=== PATIENT | male | born 1940 | race Caucasian/White ===

== ENCOUNTER 2019-02-25 12:45 | Inpatient (IN) ==
[2019-02-25] MEDS ORDERED: Isovue-370 500 ML BOTTLE IVP ONE (13:06)
--- NOTE | 2019-02-25 13:08 | Emergency Department Note ---
Disposition Clinical Impression: Pneumonia Qualifiers: Pneumonia type: due to unspecified organism Laterality: bilateral Lung location: unspecified part of lung Qualified Code(s): J18.9 - Pneumonia, unspecified organism Disposition: Admitted As Inpatient Condition: Fair Time of Disposition: 17:35 SOB HPI - General Chief Complaint: ED Shortness of Breath/Dyspnea Stated Complaint: Time Seen by Provider: 02/25/19 12:51 Source: patient, EMS Mode of arrival: EMS Limitations: no limitations Nursing Notes Reviewed: Yes Vital Signs Reviewed: Yes - History of Present Illness Patient is an 78-year-old male presenting from the [facility] for concern for pneumonia. Patient has known history of COPD, congestive heart failure, DVT not currently on anticoagulant, hypertension, hyperlipidemia end-stage renal disease, renal cell carcinoma, currently on dialysis with one kidney. Patient states for the past few days he has been having increasing shortness of breath, he does not wear oxygen at home. He states that he has also been having a worsening cough with sputum production. No fevers or chills. No chest pain. No abdominal pain, nausea or vomiting. [facility] x-ray show concern for pleural effusion with right- sided opacification and pneumonia, he was seen at the [facility] initially on Monday and prescribed a Z-Ascencion, however his symptoms did not get any better. His typical dialysis regimen is Monday, he has not missed any recent dialysis regimens. - Related Data Home Medications Medication Instructions Recorded Confirmed Albuterol Sulfate [Proventil 2 puff IH QID PRN 08/05/16 02/25/19 Inhaler] Allopurinol [Zyloprim 100 MG] 100 mg PO DAILY 08/05/16 02/25/19 Furosemide [Lasix] 40 mg PO DAILY 08/05/16 02/25/19 Metoprolol [Lopressor] 50 mg PO BID 08/05/16 02/25/19 Omeprazole [PriLOSEC] 20 mg PO BID 08/05/16 02/25/19 Sevelamer [Renvela] 3,200 mg PO TIDWM 08/05/16 02/25/19 Sodium Bicarbonate 650 mg PO BID 08/05/16 02/25/19 Terazosin [Hytrin] 1 mg PO HS 08/05/16 02/25/19 Albuterol Neb [Proventil Neb] 2.5 mg IH QID PRN 02/25/19 02/25/19 Aspirin [Lo-Dose Aspirin EC] 81 mg PO DAILY 02/25/19 02/25/19 Atorvastatin [Lipitor] 20 mg PO HS 02/25/19 02/25/19 Azithromycin [Azithromycin 6-Tab 250 mg PO PER PKG DI 02/25/19 02/25/19 Pack] Folic Acid/Vit B Complex and C 1 tab PO DAILY 02/25/19 02/25/19 [Dialyvite Tablet] Isosorbide MONOnitrate [Isosorbide 30 mg PO DAILY 02/25/19 02/25/19 Mononitrate ER] Lisinopril [Zestril] 20 mg PO BID 02/25/19 02/25/19 NIFEdipine [Nifedipine ER] 60 mg PO DAILY 02/25/19 02/25/19 Polyvinyl Alcohol [Artificial 1 drop OP QID PRN 02/25/19 02/25/19 Tears] Tiotropium [Spiriva] 18 mcg IH 0700 02/25/19 02/25/19 Allergies Allergy/AdvReac Type Severity Reaction Status Date / Time naproxen Allergy Itching Verified 01/27/15 17:36 All systems ED: reviewed and negative except as stated. Review of Systems: As Per HPI Constitutional: Denies: fever, chills ENT ED: Reports: congestion Cardiovascular: Reports: dyspnea on exertion. Denies: chest pain, palpitations, syncope Respiratory: Reports: cough, dyspnea, sputum production. Denies: wheezes, hemoptysis Gastrointestinal: Denies: abdominal pain, nausea, vomiting Genitourinary: Denies: urgency, dysuria Musculoskeletal: Denies: back pain Integumentary: Denies: rash, abrasion Neurological: Denies: headache, weakness, confusion Psychiatric: Denies: anxiety Endocrine: Denies: fatigue Past Medical History - Past Medical History Medical history: Reports: COPD, dialysis, hyperlipidemia, hypertension, myocardial infarction Surgical history: Reports: cancer surgery Psychiatric history: Reports: no psych history - Social History Smoking Status: Former smoker Smokeless Tobacco Status: No Alcohol use: Reports: none Drug use: Reports: none Physical Exam - General Limitations: no limitations General appearance: alert - Head Head exam: atraumatic - Eye Eye exam: Present: normal appearance, PERRL, EOMI - ENT ENT exam: mucous membranes moist - Neck Neck exam: Present: normal inspection, full ROM, trachea midline - Chest Chest inspection: Present: normal inspection, symmetric chest wall rise - Respiratory Respiratory exam: Present: other (Crackles at the bases bilaterally, right greater than the left, no wheezing) - Cardiovascular Cardiovascular exam: Present: regular rate, normal rhythm, normal heart sounds - Abdominal Exam Abdominal exam: Present: soft, Non-Tender. Absent: tenderness, distention, guarding, rebound, rigidity - Extremities Exam Extremities exam: Present: normal inspection, full ROM. Absent: tenderness, pedal edema - Neurological Exam Neurological exam: Present: alert, oriented X3 - Psychiatric Psychiatric exam: Present: normal affect, normal mood Course Vital Signs Temperature 98.1 F 02/25/19 12:49 Pulse Rate 81 02/25/19 12:49 Respiratory Rate 22 02/25/19 12:49 Blood Pressure 170/68 02/25/19 12:49 O2 Sat by Pulse Oximetry 97 02/25/19 12:49 Temperature 98.3 F 02/25/19 19:38 Pulse Rate 81 02/25/19 19:38 Respiratory Rate 17 02/25/19 19:38 Blood Pressure 191/86 02/25/19 19:38 O2 Sat by Pulse Oximetry 97 02/25/19 19:38 Oxygen Delivery Oxygen Delivery Room Air Shortness of Breath/Dyspnea - [facility] Narrative Medical decision making narrative: Patient is an 78-year-old male with history of hypertension, hyperlipidemia, DVT not on anticoagulation, is currently taking aspirin, end-stage renal disease, history of renal cell carcinoma with right kidney removal early on dialysis. Patient was sent in via the [facility] for concern for pneumonia. [facility] and was prescribed a Z-Ascencion for pneumonia, patient symptoms have worsened. Patient arrives afebrile and in no acute distress. He is requiring oxygen at this point in time he is currently on 2 L nasal cannula which he does not wear typically at home. X-ray was performed prior to arrival here at the [facility], showed the patient to be slightly leukopenic with a white blood cell count of 4.0, hemoglobin is 8.9, he denies any active bleeding. Serum creatinine is elevated, however the patient has known history of end-stage renal disease creatinine is 3.46, patient also had a ABG performed which shows pH of 7449, CO2 of 39, bicarbonate at 30, BNP is 31,000, troponin is 0.028, CK is at 68, LFT is relatively unremarkable. Sodium is 138, potassium at 3.4, chloride 103, INR 0.9. Patient did have blood cultures performed as well as lactic acid here in the ER. Lactic acid was normal. Patient was only given 500 mL's of fluid secondary to fluid overload status as well as dialysis patient with bilateral pleural effusions. Concern for pneumonia versus pleural effusion on the a chest x-ray, CTA was performed as well to rule out pulmonary embolism. CTA shows no sign of pulmonary embolus and, does show opacification to the left lung with bilateral pleural effusions. Patient was started on vancomycin, Zosyn and azithromycin given patient's history of dialysis. Patient otherwise has remained stable here in the ER. Patient will be admitted for further treatment and observation. - Differential Diagnosis Likely: acute exacerbation of chronic obstructive airways disease, pneumonia, pulmonary embolism, arrhythmia - Medical Records Medical records reviewed: Yes I reviewed the patient's medical records. - Lab Data Lab results reviewed: Yes I reviewed the patient's lab results. Result diagrams: 02/25/19 17:34 02/25/19 17:34 Lab Results 02/25/19 02/25/19 02/25/19 Range/Units 13:34 17:34 17:34 WBC 3.8 L (4.3-11.1) K/mcL RBC 2.24 L (4.19-5.50) M/mcL Hgb 8.2 L (12.9-16.9) g/dL Hct 24.9 L (37.5-50.1) % MCV 111.2 H (83.0-100.0) fL MCH 36.6 H (28.0-33.3) pg MCHC 32.9 (31.6-35.5) g/dL RDW 15.2 H (11.5-14.5) % Plt Count 94 L (140-400) K/mcL MPV TNP Immature Gran % 0.5 (0-4) % Seg Neutrophils % 66.8 % Lymphocytes % 21.6 % Monocytes % 9.0 % Eosinophils % 1.8 % Basophils % 0.3 % Neutrophils # 2.5 (1.6-8.9) K/mcL Lymphocytes # 0.8 (0.6-4.6) K/mcL Monocytes # 0.3 (0.0-1.3) K/mcL Eosinophils # 0.1 (0.0-0.6) K/mcL Basophils # 0.0 (0.0-0.2) K/mcL Platelet Estimate Decreased L (Normal) Immature Plt Fraction 18.2 H (1.1-6.1) % Hypochromasia Present A (Not Present) Macrocytosis Present A (Not Present) PT 11.8 (9.4-12.1) Seconds INR 1.0 Sodium (136-145) mEq/L Potassium (3.5-5.1) mEq/L Chloride (98-107) mEq/L Carbon Dioxide (23-29) mEq/L BUN (8-23) mg/dL Creatinine (0.70-1.30) mg/dL Est GFR ( Amer) (> 60) Est GFR (Non-Af Amer) (> 60) BUN/Creatinine Ratio (6-26) Glucose (70-105) mg/dL Calculated Osmolality (280-300) Lactic Acid 1.1 (0.5-2.2) mmol/L Calcium (8.6-10.3) mg/dL Total Bilirubin (0.3-1.0) mg/dL AST (13-39) Units/L ALT (7-52) Units/L Alkaline Phosphatase (34-104) Units/L B-Natriuretic Peptide (Less than 100) pg/mL Serum Total Protein (6.4-8.9) g/dL Albumin (3.5-5.7) g/dL Globulin (2.4-3.5) g/dL Albumin/Globulin Ratio (1.1-2.2) 02/25/19 02/25/19 Range/Units 17:34 17:34 WBC (4.3-11.1) K/mcL RBC (4.19-5.50) M/mcL Hgb (12.9-16.9) g/dL Hct (37.5-50.1) % MCV (83.0-100.0) fL MCH (28.0-33.3) pg MCHC (31.6-35.5) g/dL RDW (11.5-14.5) % Plt Count (140-400) K/mcL MPV Immature Gran % (0-4) % Seg Neutrophils % % Lymphocytes % % Monocytes % % Eosinophils % % Basophils % % Neutrophils # (1.6-8.9) K/mcL Lymphocytes # (0.6-4.6) K/mcL Monocytes # (0.0-1.3) K/mcL Eosinophils # (0.0-0.6) K/mcL Basophils # (0.0-0.2) K/mcL Platelet Estimate (Normal) Immature Plt Fraction (1.1-6.1) % Hypochromasia (Not Present) Macrocytosis (Not Present) PT (9.4-12.1) Seconds INR Sodium 138 (136-145) mEq/L Potassium 3.4 L (3.5-5.1) mEq/L Chloride 102 (98-107) mEq/L Carbon Dioxide 30 H (23-29) mEq/L BUN 25 H (8-23) mg/dL Creatinine 4.03 H (0.70-1.30) mg/dL Est GFR ( Amer) 17 L (> 60) Est GFR (Non-Af Amer) 14 L (> 60) BUN/Creatinine Ratio 6 (6-26) Glucose 181 H (70-105) mg/dL Calculated Osmolality 295 (280-300) Lactic Acid (0.5-2.2) mmol/L Calcium 8.4 L (8.6-10.3) mg/dL Total Bilirubin 0.7 (0.3-1.0) mg/dL AST 10 L (13-39) Units/L ALT 7 (7-52) Units/L Alkaline Phosphatase 49 (34-104) Units/L B-Natriuretic Peptide 1393 H (Less than 100) pg/mL Serum Total Protein 5.3 L (6.4-8.9) g/dL Albumin 3.2 L (3.5-5.7) g/dL Globulin 2.1 L (2.4-3.5) g/dL Albumin/Globulin Ratio 1.5 (1.1-2.2) - Radiology Data Radiology results reviewed: Yes I reviewed the patient's radiology results. Chest CTA 02/25/19 16:19 IMPRESSION: No pulmonary embolus. Moderate left and small right pleural effusions. Left lower lobe consolidation and partial consolidation of the left upper lobe, right lower lobe, and right upper lobe. Patchy scattered ground-glass attenuation and parenchymal opacities in the right upper lobe. Findings may be related to edema however superimposed infection also consideration. Recommend follow-up in 3 months. D/ / Hailey Pierre MD / Hailey Pierre MD Interpreting Provider: Hailey Pierre MD - EKG Data EKG attestation: Yes I reviewed and interpreted this EKG. EKG results narrative: EKG performed at 1312 ventricular rate of 70, regular rhythm, normal axis, no ST segment elevation, depression, nonspecific T-wave changes, compared to old EKG appears relatively unchanged.
[2019-02-25] MEDS ORDERED: Piperacillin/Tazobactam 3.375 GM in 0.9 % Sodium Chloride Mini Bag 100 ML IVPB ONE (13:12)
[2019-02-25] MEDS ORDERED: Azithromycin 500 MG in 0.9 % Sodium Chloride 250 ML IVPB ONE (13:12)
--- NOTE | 2019-02-25 14:08 | Electrocardiograph Report ---
[place] [address] Test Date: 2019-02-25 Pat Name: Branden Laurent Department: EXAM3 Room: Gender: M Matcher Offbearer: : 1940 Requested By: Thony Cheung Order Number: [id number] Reading MD: Rad Katz Measurements Intervals [place] Rate: 70 P: 3 [place]: 142 QRS: -24 QRSD: 105 T: 80 QT: 474 QTc: 512 Interpretive Statements Sinus rhythm Borderline left axis deviation Borderline repolarization abnormality Prolonged QT interval Electronically Signed On 02-25-2019 14:07:14 EDT by Rad Katz
--- NOTE | 2019-02-25 14:56 | Emergency Department Note ---
Disposition Clinical Impression: Pneumonia Qualifiers: Pneumonia type: due to unspecified organism Laterality: bilateral Lung location: unspecified part of lung Qualified Code(s): J18.9 - Pneumonia, unspecified organism Disposition: Admitted As Inpatient Condition: Fair Time of Disposition: 17:35 General Adult HPI - General Chief complaint: ED Shortness of Breath/Dyspnea Stated complaint: Time Seen by Provider: 02/25/19 12:51 Source: EMS - History of Present Illness Pain Scale: 0 - Related Data Home Medications Medication Instructions Recorded Confirmed Albuterol Sulfate [Proventil 2 puff IH QID PRN 08/05/16 02/25/19 Inhaler] Allopurinol [Zyloprim 100 MG] 100 mg PO DAILY 08/05/16 02/25/19 Furosemide [Lasix] 40 mg PO DAILY 08/05/16 02/25/19 Metoprolol [Lopressor] 50 mg PO BID 08/05/16 02/25/19 Omeprazole [PriLOSEC] 20 mg PO BID 08/05/16 02/25/19 Sevelamer [Renvela] 3,200 mg PO TIDWM 08/05/16 02/25/19 Sodium Bicarbonate 650 mg PO BID 08/05/16 02/25/19 Terazosin [Hytrin] 1 mg PO HS 08/05/16 02/25/19 Albuterol Neb [Proventil Neb] 2.5 mg IH QID PRN 02/25/19 02/25/19 Aspirin [Lo-Dose Aspirin EC] 81 mg PO DAILY 02/25/19 02/25/19 Atorvastatin [Lipitor] 20 mg PO HS 02/25/19 02/25/19 Azithromycin [Azithromycin 6-Tab 250 mg PO PER PKG DI 02/25/19 02/25/19 Pack] Folic Acid/Vit B Complex and C 1 tab PO DAILY 02/25/19 02/25/19 [Dialyvite Tablet] Isosorbide MONOnitrate [Isosorbide 30 mg PO DAILY 02/25/19 02/25/19 Mononitrate ER] Lisinopril [Zestril] 20 mg PO BID 02/25/19 02/25/19 NIFEdipine [Nifedipine ER] 60 mg PO DAILY 02/25/19 02/25/19 Polyvinyl Alcohol [Artificial 1 drop OP QID PRN 02/25/19 02/25/19 Tears] Tiotropium [Spiriva] 18 mcg IH 0700 02/25/19 02/25/19 Allergies Allergy/AdvReac Type Severity Reaction Status Date / Time naproxen Allergy Itching Verified 01/27/15 17:36 Past Medical History - Past Medical History Medical history: Reports: COPD, dialysis, hyperlipidemia, hypertension, myocardial infarction Surgical history: Reports: cancer surgery Psychiatric history: Reports: no psych history - Social History Smoking Status: Former smoker Smokeless Tobacco Status: No Alcohol use: Reports: none Drug use: Reports: none Physical Exam - General General appearance: alert Course Vital Signs Temperature 98.1 F 02/25/19 12:49 Pulse Rate 81 02/25/19 12:49 Respiratory Rate 22 02/25/19 12:49 Blood Pressure 170/68 02/25/19 12:49 O2 Sat by Pulse Oximetry 97 02/25/19 12:49 Temperature 97.9 F 02/25/19 23:09 Pulse Rate 75 02/25/19 23:09 Respiratory Rate 16 02/25/19 23:09 Blood Pressure 172/83 02/25/19 23:09 O2 Sat by Pulse Oximetry 90 02/25/19 23:09 Oxygen Delivery Oxygen Delivery Room Air Medical Decision Making - Lab Data Result diagrams: 02/25/19 17:34 02/25/19 17:34 Lab Results 02/25/19 02/25/19 02/25/19 Range/Units 13:34 17:34 17:34 WBC 3.8 L (4.3-11.1) K/mcL RBC 2.24 L (4.19-5.50) M/mcL Hgb 8.2 L (12.9-16.9) g/dL Hct 24.9 L (37.5-50.1) % MCV 111.2 H (83.0-100.0) fL MCH 36.6 H (28.0-33.3) pg MCHC 32.9 (31.6-35.5) g/dL RDW 15.2 H (11.5-14.5) % Plt Count 94 L (140-400) K/mcL MPV TNP Immature Gran % 0.5 (0-4) % Seg Neutrophils % 66.8 % Lymphocytes % 21.6 % Monocytes % 9.0 % Eosinophils % 1.8 % Basophils % 0.3 % Neutrophils # 2.5 (1.6-8.9) K/mcL Lymphocytes # 0.8 (0.6-4.6) K/mcL Monocytes # 0.3 (0.0-1.3) K/mcL Eosinophils # 0.1 (0.0-0.6) K/mcL Basophils # 0.0 (0.0-0.2) K/mcL Platelet Estimate Decreased L (Normal) Immature Plt Fraction 18.2 H (1.1-6.1) % Hypochromasia Present A (Not Present) Macrocytosis Present A (Not Present) PT 11.8 (9.4-12.1) Seconds INR 1.0 Sodium (136-145) mEq/L Potassium (3.5-5.1) mEq/L Chloride (98-107) mEq/L Carbon Dioxide (23-29) mEq/L BUN (8-23) mg/dL Creatinine (0.70-1.30) mg/dL Est GFR ( Amer) (> 60) Est GFR (Non-Af Amer) (> 60) BUN/Creatinine Ratio (6-26) Glucose (70-105) mg/dL Calculated Osmolality (280-300) Lactic Acid 1.1 (0.5-2.2) mmol/L Calcium (8.6-10.3) mg/dL Total Bilirubin (0.3-1.0) mg/dL AST (13-39) Units/L ALT (7-52) Units/L Alkaline Phosphatase (34-104) Units/L B-Natriuretic Peptide (Less than 100) pg/mL Serum Total Protein (6.4-8.9) g/dL Albumin (3.5-5.7) g/dL Globulin (2.4-3.5) g/dL Albumin/Globulin Ratio (1.1-2.2) 02/25/19 02/25/19 Range/Units 17:34 17:34 WBC (4.3-11.1) K/mcL RBC (4.19-5.50) M/mcL Hgb (12.9-16.9) g/dL Hct (37.5-50.1) % MCV (83.0-100.0) fL MCH (28.0-33.3) pg MCHC (31.6-35.5) g/dL RDW (11.5-14.5) % Plt Count (140-400) K/mcL MPV Immature Gran % (0-4) % Seg Neutrophils % % Lymphocytes % % Monocytes % % Eosinophils % % Basophils % % Neutrophils # (1.6-8.9) K/mcL Lymphocytes # (0.6-4.6) K/mcL Monocytes # (0.0-1.3) K/mcL Eosinophils # (0.0-0.6) K/mcL Basophils # (0.0-0.2) K/mcL Platelet Estimate (Normal) Immature Plt Fraction (1.1-6.1) % Hypochromasia (Not Present) Macrocytosis (Not Present) PT (9.4-12.1) Seconds INR Sodium 138 (136-145) mEq/L Potassium 3.4 L (3.5-5.1) mEq/L Chloride 102 (98-107) mEq/L Carbon Dioxide 30 H (23-29) mEq/L BUN 25 H (8-23) mg/dL Creatinine 4.03 H (0.70-1.30) mg/dL Est GFR ( Amer) 17 L (> 60) Est GFR (Non-Af Amer) 14 L (> 60) BUN/Creatinine Ratio 6 (6-26) Glucose 181 H (70-105) mg/dL Calculated Osmolality 295 (280-300) Lactic Acid (0.5-2.2) mmol/L Calcium 8.4 L (8.6-10.3) mg/dL Total Bilirubin 0.7 (0.3-1.0) mg/dL AST 10 L (13-39) Units/L ALT 7 (7-52) Units/L Alkaline Phosphatase 49 (34-104) Units/L B-Natriuretic Peptide 1393 H (Less than 100) pg/mL Serum Total Protein 5.3 L (6.4-8.9) g/dL Albumin 3.2 L (3.5-5.7) g/dL Globulin 2.1 L (2.4-3.5) g/dL Albumin/Globulin Ratio 1.5 (1.1-2.2) Attestation Statement - Attestation Attestation: I examined this patient and my medical decision-making was reviewed with the Resident Physician. I agree with the documented findings, disposition and treatment plan as described except to the extent set forth below. Patient 78-year-old gentleman who presents to the emergency department with chief complaint of shortness of breath. [facility] was found to have bilateral pleural effusions and a pneumonia. Patient reports that he is a dialysis patient and completed his normal run of dialysis. Exam the patient awake alert no acute distress resting comfortably on the stretcher Medical decision management patient will be started on IV antibiotics in the emergency department and undergo CTA of the chest on the plan is to admit the patient to the hospital for further management. The patient was not given aggressive fluid hydration due to his end-stage renal disease and fluid overload status
[2019-02-25] MEDS ORDERED: 0.9 % Sodium Chloride 500 ML IVC ONE (17:17)
[2019-02-25 18:08] LABS: Prothrombin Time 11.8 Seconds (9.4-12.1)
--- NOTE | 2019-02-25 18:08 | Internal Med History&Physical ---
Date of Encounter: 02/25/19 Time of Encounter: 17:58 Internal Medicine - H&P: HPI Chief complaint: Shortness of Breath Admitted From: Home Plans for Post Hospital Care: Home History of present illness: Mr. Laurent is a 78 year old male [facility] patient with hx of RCC s/p nephrectomy leading to ESRD on HD M/W/F, COPD, DVT that he declined treatment for, and CHF (no echo on file) presents as a transfer from the [facility] ED for shortness of breath. Has had increased shortness of breath and cough since 02/21. Went to the [facility] ED 02/22 and was noted to have pneumonia on the right side and pleural effusion on the left side of his chest x-ray and prescribed a Z-Ascencion. Did not get any benefit from Z-Ascencion so is admitted again to [facility] today with the same symptoms. Labs were completed that were notable for leukopenia but otherwise within normal limits for hemodialysis patient. Transferred to [place] because [facility] does not have dialysis unit. CTA completed with moderate left and small right pleural effusions with concern for underlying pneumonia on the left. Patient has not missed any dialysis sessions and was last dialyzed today. Notably, patient says that he had a fall onto his left side one week prior to admission - was seen at the [facility] for this and x-rays without evidence of rib fractures but patient continues to endorse a lot of pain on his left side. Admitted to medicine. *Patient was transferred from the [facility] with limited labs so many labs here are still pending at the time of this note* Past Med Surg Social Fam HX - Past Medical History Medical history: COPD, dialysis, hyperlipidemia, hypertension, myocardial infarction Additional medical history: ESRD, dialysis Psychiatric history: no psych history - Past Surgical History Surgical History: cancer surgery Additional surgical history: R nephrectomy, neck surgery disk replacement, lower back surgery x 3, left upper arm - Social History Smoking Status: Former smoker Smokeless Tobacco Status: No Alcohol use: none Drug use: none Internal Medicine - H&P: Meds Albuterol Sulfate [Proventil Inhaler] 2 puff IH QID PRN 08/05/16 [History] Allopurinol [Zyloprim 100 MG] 100 mg PO DAILY 08/05/16 [History] Furosemide [Lasix] 40 mg PO DAILY 08/05/16 [History] Metoprolol [Lopressor] 50 mg PO BID 08/05/16 [History] Omeprazole [PriLOSEC] 20 mg PO BID 08/05/16 [History] Sevelamer [Renvela] 3,200 mg PO TIDWM 08/05/16 [History] Sodium Bicarbonate 650 mg PO BID 08/05/16 [History] Terazosin [Hytrin] 1 mg PO HS 08/05/16 [History] Albuterol Neb [Proventil Neb] 2.5 mg IH QID PRN 02/25/19 [History] Aspirin [Lo-Dose Aspirin EC] 81 mg PO DAILY 02/25/19 [History] Atorvastatin [Lipitor] 20 mg PO HS 02/25/19 [History] Azithromycin [Azithromycin 6-Tab Pack] 250 mg PO PER PKG DI 02/25/19 [History] Folic Acid/Vit B Complex and C [Dialyvite Tablet] 1 tab PO DAILY 02/25/19 [History] Isosorbide MONOnitrate [Isosorbide Mononitrate ER] 30 mg PO DAILY 02/25/19 [History] Lisinopril [Zestril] 20 mg PO BID 02/25/19 [History] NIFEdipine [Nifedipine ER] 60 mg PO DAILY 02/25/19 [History] Polyvinyl Alcohol [Artificial Tears] 1 drop OP QID PRN 02/25/19 [History] Tiotropium [Spiriva] 18 mcg IH 0700 02/25/19 [History] Allergy/AdvReac Type Severity Reaction Status Date / Time naproxen Allergy Itching Verified 01/27/15 17:36 Review of systems: General: Fevers / Chills / Weight loss / Night sweats Eyes: Blurry Vision / Change in Vision HENT: Ear Pain / Ear Drainage / Rhinorrhea / Throat Pain / Lymphadenopathy Cardiovascular: Chest Pain / Palpatations / Orthopnea / PFEIFFER / Weight gain Lungs: Dyspnea / Wheezing / Cough / Sputum production / Pleurisy Abdomen: Abdomen pain / Abdominal distention / Nausea / Vomiting / Diarrhea / Const : Dysuria / Urinary Frequency / Urinary Urgency / Hematuria Extremities: LE edema / Ext pain / Ext erythema Skin: Rashes / Abrasions / Contusions Psych: Hallucinations / Anxiety / Depression Neuro: Weakness / Numbness / Tingling / Facial Droop / Dysphagia - Constitutional Vitals: Temp Pulse Resp BP Pulse Ox 98.1 F 81 21 183/85 96 02/25/19 12:49 02/25/19 16:05 02/25/19 16:05 02/25/19 16:05 02/25/19 16:05 Exam: General: Ill-appearing and in no acute distress HEENT: No erythema of posterior pharynx. No exudates. Lymphatics: No mandibular or cervical lymphadenopathy Cardiovascular: RRR. No murmurs. No chest wall tenderness. Lungs: Decreased breath sounds on left. Regular chest rise. Abdomen: Non-tender. No rebound or gaurding. Nl bowel sounds. Extremities: RLE edema. 2+ pulses radial and pedal pulses Skin: No rahses, abrasions, or contusions. Nl cap refill. Psych: Nl attention. A&Ox3 Neuro: recordak operator II-XII intact. 5/5 strength. Sensation to light touch and pinprick intact. Internal Med - H&P Results - Labs CBC & Chem 7: 02/25/19 17:34 - Impressions ITS Impressions Chest CTA 02/25/19 16:19 IMPRESSION: No pulmonary embolus. Moderate left and small right pleural effusions. Left lower lobe consolidation and partial consolidation of the left upper lobe, right lower lobe, and right upper lobe. Patchy scattered ground-glass attenuation and parenchymal opacities in the right upper lobe. Findings may be related to edema however superimposed infection also consideration. Recommend follow-up in 3 months. D/ / Hailey Pierre MD / Hailey Pierre MD Interpreting Provider: Hailey Pierre MD - Assessment and Plan (1) Pleural effusion Current Visit: Yes Status: Acute Assessment and plan: Patient with hx of ESRD on HD M/W/F, CHF (no echo on file), and recent fall presents with shortness of breath and hypoxia (chronically on 2 L of oxygen at home now requiring it continuously) and found to have a moderate left and small right pleural effusion with concern for underlying pneumonia on the left. -May be secondary to hypervolemic state: However, has not missed any sessions of dialysis and no other signs of hypervolemia -May be secondary to infectious process but patient's symptoms are minimal and no leukocytosis -Concern for hemorrhagic effusion given recent fall on the left side: Not on blood thinners but notes that he has prolonged bleeding after dialysis -Also concern for malignant effusion given history of RCC -Considered bedside thoracentesis, however, given concern for hemorrhagic effusion would be best if this was completed by IR -Patient has considerable reservations/anxiety about thoracentesis so may need some form of sedation PLAN: - Broad spectrum antibiotics - Thoracentesis per IR tomorrow - BNP to assess further if hypervolemic state could be contributing - if significantly high will require echocardiogram given none in our system (2) Acute on chronic respiratory failure with hypoxia Current Visit: Yes Status: Acute Assessment and plan: Chronically on 2 L of oxygen at home now requiring it continuously. -Likely secondary to pleural effusions. -History of DVT that went untreated but CTA without evidence of PE. -History of COPD but no wheezing on exam. PLAN: - Interventions per above - Dialysis Monday was a Monday - Home inhalers (3) ESRD (end stage renal disease) Current Visit: No Status: Acute Assessment and plan: Hx of RCC s/p nephrectomy leading to ESRD on HD M/W/. Last dialyzed today. Besi tracy pleural effusion, does not appear grossly hypervolemic. - Consult to nephrology (4) Renal cell carcinoma Current Visit: Yes Status: Acute Assessment and plan: Hx of RCC s/p nephrectomy leading to ESRD on HD M/W/. - We will assess left effusion for malignant cells - Follow up outpatient for further management Qualifiers: Laterality: right Qualified Code(s): C64.1 - Malignant neoplasm of right kidney, except renal pelvis (5) Hx of deep venous thrombosis Current Visit: Yes Status: Acute Assessment and plan: History of artery DVT. Denied treatment for this. Hypoxia on admission but CTA without evidence of PE. - Monitor
[2019-02-25 18:22] LABS: Basophils % 0.3 %; Hemoglobin 8.2 g/dL (12.9-16.9); Red Cell Distribution Width 15.2 % (11.5-14.5)
[2019-02-25 18:24] LABS: Eosinophils # 0.1 K/mcL (0.0-0.6); Eosinophils % 1.8 %; Hematocrit 24.9 % (37.5-50.1); Immature Granulocytes % 0.5 % (0-4); Immature Platelets 18.2 % (1.1-6.1); Lymphocytes # 0.8 K/mcL (0.6-4.6); Lymphocytes % 21.6 %; Mean Corpuscular HGB Conc 32.9 g/dL (31.6-35.5); Mean Corpuscular Hemoglobin 36.6 pg (28.0-33.3); Mean Corpuscular Volume 111.2 fL (83.0-100.0); Monocytes # 0.3 K/mcL (0.0-1.3); Neutrophils # 2.5 K/mcL (1.6-8.9); Red Blood Count 2.24 M/mcL (4.19-5.50); Segmented Neutrophils % 66.8 %; White Blood Count 3.8 K/mcL (4.3-11.1)
[2019-02-25 18:28] LABS: Platelet Count 94 K/mcL (140-400)
[2019-02-25] MEDS ORDERED: Ondansetron ODT 4 MG TAB.RAPDIS SL PRN (18:33)
[2019-02-25] MEDS ORDERED: *HR* Promethazine 25 MG/ML VIAL IVP PRN (18:33)
[2019-02-25] MEDS ORDERED: Naloxone 0.4 MG/ML INJ IVP PRN (18:33)
[2019-02-25 18:44] LABS: Albumin 3.2 g/dL (3.5-5.7); Albumin/Globulin Ratio 1.5 (1.1-2.2); Bilirubin,Total 0.7 mg/dL (0.3-1.0); Calcium 8.4 mg/dL (8.6-10.3); Globulin 2.1 g/dL (2.4-3.5); Potassium 3.4 mEq/L (3.5-5.1); Total Protein 5.3 g/dL (6.4-8.9)
[2019-02-25] MEDS ORDERED: Artificial Tears SOLN 15 ML BOTTLE OP PRN (18:47)
[2019-02-25] MEDS ORDERED: Albuterol 2.5 MG/3 ML NEBULIZER IH PRN (18:47)
[2019-02-25 18:53] LABS: Hypochromasia Present (Not Present); Macrocytosis Present (Not Present); Platelet Estimate Decreased (Normal)
[2019-02-25] MEDS: Lisinopril 20 MG TABLET PO SCH (20:21)
[2019-02-26] MEDS: Piperacillin/Tazobactam 3.375 GM in 0.9 % Sodium Chloride Mini Bag 100 ML IVPB SCH ×2 (04:29→17:07)
[2019-02-26 06:07] LABS: Basophils % 0.3 %; Immature Granulocytes % 0.8 % (0-4)
[2019-02-26 06:09] LABS: Eosinophils # 0.1 K/mcL (0.0-0.6); Eosinophils % 2.6 %; Hematocrit 24.1 % (37.5-50.1); Hemoglobin 7.9 g/dL (12.9-16.9); Immature Platelets 16.8 % (1.1-6.1); Lymphocytes # 1.1 K/mcL (0.6-4.6); Lymphocytes % 29.1 %; Mean Corpuscular HGB Conc 32.8 g/dL (31.6-35.5); Mean Corpuscular Hemoglobin 36.6 pg (28.0-33.3); Mean Corpuscular Volume 111.6 fL (83.0-100.0); Monocytes # 0.4 K/mcL (0.0-1.3); Nucleated Red Blood Cells 0.5 /100 WBC (0); Red Blood Count 2.16 M/mcL (4.19-5.50); Red Cell Distribution Width 15.3 % (11.5-14.5); Segmented Neutrophils % 56.2 %; White Blood Count 3.8 K/mcL (4.3-11.1)
[2019-02-26 06:12] LABS: Platelet Count 90 K/mcL (140-400)
[2019-02-26 06:12] LABS: Acinetobacter baumannii by PCR Not Detected (Not Detect); Candida albicans by PCR Not Detected (Not Detect); Candida glabrata by PCR Not Detected (Not Detect); Candida krusei by PCR Not Detected (Not Detect); Candida parapsilosis by PCR Not Detected (Not Detect); Candida tropicalis by PCR Not Detected (Not Detect); Enterobacter cloacae Cmplx PCR Not Detected (Not Detect); Enterobacteriaceae by PCR Not Detected (Not Detect); Enterococcus by PCR Not Detected (Not Detect); Escherichia coli by PCR Not Detected (Not Detect); Klebsiella oxytoca by PCR Not Detected (Not Detect); Klebsiella pneumoniae by PCR Not Detected (Not Detect); Proteus by PCR Not Detected (Not Detect); Pseudomonas aeruginosa by PCR Not Detected (Not Detect); Serratia marcescens by PCR Not Detected (Not Detect); Staphylococcus aureus by PCR Not Detected (Not Detect); Staphylococcus by PCR DETECTED (Not Detect); Streptococcus agalactiae(B)PCR Not Detected (Not Detect); Streptococcus by PCR DETECTED (Not Detect); Streptococcus pneumoniae PCR Not Detected (Not Detect); Streptococcus pyogenes (A) PCR Not Detected (Not Detect); mecA Methicillin-Resist Gene DETECTED (Not Detect)
[2019-02-26 06:13] LABS: Neutrophils # 2.1 K/mcL (1.6-8.9)
[2019-02-26 06:28] LABS: Calcium 8.4 mg/dL (8.6-10.3); Potassium 3.8 mEq/L (3.5-5.1)
[2019-02-26 06:29] LABS: Lactate Dehydrogenase 172 Units/L (140-271); Total Protein 5.1 g/dL (6.4-8.9)
[2019-02-26 06:40] LABS: Anisocytosis 1+ (Not Present); Macrocytosis Present (Not Present); Platelet Estimate Decreased (Normal)
[2019-02-26] MEDS: Tiotropium 18 MCG inhalation IH SCH (07:15)
[2019-02-26] MEDS: Furosemide 40 MG TABLET PO SCH (08:06)
[2019-02-26] MEDS: Aspirin Enteric Coated 81 MG Tablet PO SCH (08:06)
[2019-02-26] MEDS: Isosorbide MONOnitrate (24 HR) 30 MG TAB.ER.24H PO SCH (08:06)
[2019-02-26] MEDS: Lisinopril 20 MG TABLET PO SCH (08:06)
[2019-02-26 08:30] LABS: Albumin 2.9 g/dL (3.5-5.7); Albumin/Globulin Ratio 1.4 (1.1-2.2); Bilirubin,Direct 0.1 mg/dL (0.0-0.2); Bilirubin,Indirect 0.5 mg/dL (0.0-1.2); Bilirubin,Total 0.6 mg/dL (0.3-1.0); Globulin 2.1 g/dL (2.4-3.5)
[2019-02-26] MEDS ORDERED: NIFEdipine XL (24 HR) 60 MG TAB.ER.24 PO SCH (09:00)
--- NOTE | 2019-02-26 10:58 | Internal Med Progress Note ---
Hospitalist Progress Note - Encounter Date of Encounter: 02/26/19 Time of Encounter: 09:35 - Subjective Interval History: Patient was seen this morning, still short of breath and denied any chest pain, fever or chills. - Exam Vitals: Temp Pulse Resp BP Pulse Ox 98.4 F 87 18 191/75 93 02/26/19 07:59 02/26/19 07:59 02/26/19 07:59 02/26/19 07:59 02/26/19 08:10 Exam: General: Ill-appearing and in no acute distress HEENT: No erythema of posterior pharynx. No exudates. Lymphatics: No mandibular or cervical lymphadenopathy Cardiovascular: RRR. No murmurs. No chest wall tenderness. Lungs: Decreased breath sounds on left. Abdomen: Non-tender. No rebound or gaurding. Nl bowel sounds. Extremities: . 2+ pulses radial and pedal pulses. Right upper extremity AV fistula with bruit. Skin: No rahses, abrasions, or contusions. Nl cap refill. Psych: Nl attention. A&Ox3 Neuro: verifier operator II-XII intact. 5/5 strength. - Assessment and Plan (1) Pleural effusion Current Visit: Yes Status: Acute (2) Acute on chronic respiratory failure with hypoxia Current Visit: Yes Status: Acute (3) ESRD (end stage renal disease) Current Visit: No Status: Acute (4) Renal cell carcinoma Current Visit: Yes Status: Acute (5) Hx of deep venous thrombosis Current Visit: Yes Status: Acute (6) Pneumonia Current Visit: Yes Status: Acute (7) Hypertension Current Visit: Yes Status: Chronic - Summary of Assessment and Plan Summary of Assessment and Plan: 78 years old male with history of RCC status post nephrectomy, end-stage renal disease on HD, DVT not on anticoagulation, COPD not on oxygen, essential hypertension [facility]. Pneumonia: CT with LLL,LILIANA,RLL,RUL consolidation. He has leukopenia, afebrile, hemodynamically stable. Continue renally dosed Vanco and Zosyn. Streptococcus antigen, Legionella antigen, sputum culture are pending. Blood cultures growing gram-positive cocci and 1/2. Follow blood cultures are ordered. Sepsis: meet 2/4, management as per above. Pleural effusion: Moderate on the left side, today for by thoracocentesis. We will check echo. COPD: Continue home dose inhalers. Acute hypoxic respiratory failure: 2/2 above, currently on 3L. CTA is - for PE. HTN: NOT controlled, increase to 90 mg, switch Lopressor to Coreg. Continue lisinopril. Pancytopenia: unsure about his baseline, likely from sepsis. Check folic acid, TSH, B12, iron profile. Check CBC tomorrow End-stage renal disease on HD MWF: Consult nephrology. Prolonged QTc: likely from hypokalemia. Will repeat EKG and continue telemetry bed. DVT: In the right lower extremity, diagnosed a few months ago and patient refused therapy due to easy bleeding. DVT ppx: SCD. I reviewed independently all laboratory workup, pertinent images including x- rays and CT scans. I also reviewed independently and EKGs and my findings are in the body of my assessment and plan. I ordered the laboratory workup and images myself. I discussed finding with patient's, their families, RN's and consultants involved in the care of the patient. - Time Spent with Patient Total time spent is greater than 50% in coordination of care (as documented) at patient's floor/unit and/or counseling patient: Plan of Care Discussed with: patient Internal Medicine: Result - Labs CBC & Chem 7: 02/26/19 05:53 02/26/19 05:53 Labs: Short CBC 02/25/19 02/26/19 Range/Units 17:34 05:53 WBC 3.8 L 3.8 L (4.3-11.1) K/mcL Hgb 8.2 L 7.9 L (12.9-16.9) g/dL Hct 24.9 L 24.1 L (37.5-50.1) % Plt Count 94 L 90 L (140-400) K/mcL Neutrophils # 2.5 2.1 (1.6-8.9) K/mcL BMP 02/25/19 02/26/19 17:34 05:53 Sodium 138 141 Potassium 3.4 L 3.8 Chloride 102 104 Carbon Dioxide 30 H 26 BUN 25 H 35 H Creatinine 4.03 H 5.17 H Glucose 181 H 100 Calcium 8.4 L 8.4 L Liver Function 02/25/19 02/26/19 Range/Units 17:34 07:50 Total Bilirubin 0.7 0.6 (0.3-1.0) mg/dL Direct Bilirubin 0.1 (0.0-0.2) mg/dL AST 10 L 9 L (13-39) Units/L ALT 7 6 L (7-52) Units/L Alkaline Phosphatase 49 44 (34-104) Units/L Albumin 3.2 L 2.9 L (3.5-5.7) g/dL - ABG Interpretation ABG results: PT/INR, D-dimer PT 11.8 Seconds (9.4-12.1) 02/25/19 17:34 - Impressions Impressions Chest CTA 02/25/19 16:19 IMPRESSION: No pulmonary embolus. Moderate left and small right pleural effusions. Left lower lobe consolidation and partial consolidation of the left upper lobe, right lower lobe, and right upper lobe. Patchy scattered ground-glass attenuation and parenchymal opacities in the right upper lobe. Findings may be related to edema however superimposed infection also consideration. Recommend follow-up in 3 months. D/ / Hailey Pierre MD / Hailey Pierre MD Interpreting Provider: Hailey Pierre MD Consult Discharge Plan - Plan [facility]errals: [facility] [Primary Care Provider] - (4) Renal cell carcinoma Qualifiers: Laterality: right Qualified Code(s): C64.1 - Malignant neoplasm of right kidney, except renal pelvis (6) Pneumonia Qualifiers: Pneumonia type: due to unspecified organism Laterality: bilateral Lung location: unspecified part of lung Qualified Code(s): J18.9 - Pneumonia, unspecified organism (7) Hypertension Qualifiers: Hypertension type: essential hypertension Qualified Code(s): I10 - Essential (primary) hypertension
--- NOTE | 2019-02-26 11:38 | Nephrology Consult Note ---
Date of Encounter: 02/26/19 Time of Encounter: 11:33 Assessment and Plan (1) ESRD (end stage renal disease) on dialysis Current Visit: Yes Status: Acute Current regimen is MWF at [facility]. Plan for HD tomorrow, HD completed yesterday. Renal diet Renal vitamins Strict I/O Avoid nephrotoxins and renal dose all medications. Will order additional UF or HD as needed. (2) Acute on chronic respiratory failure with hypoxia Current Visit: Yes Status: Acute Plan for IR to do thoracentesis per primary team. (3) Pleural effusion Current Visit: Yes Status: Acute Plan for IR to do thoracentesis. (4) Hypertension Current Visit: Yes Status: Chronic Stable, titrate medications accordingly. Qualifiers: Hypertension type: essential hypertension Qualified Code(s): I10 - Essential (primary) hypertension (5) Anemia in chronic kidney disease (CKD) Current Visit: No Status: Acute Hgb is 7.9, stable. not yet at goal. Aranesp ordered. Qualifiers: Qualified Code(s): N18.9 - Chronic kidney disease, unspecified; D63.1 - Anemia in chronic kidney disease History of Present Illness - Reason for Consult Consult date: 02/26/19 end stage renal disease Requesting physician: [facility] - Chief Complaint difficulty in breathing - History of Present Illness Mr. Laurent is an 78 year old male who presented from the [place] with difficulty in breathing. States it started Monday during HD, he was placed on n/c which he is not normally on. PMH: COPD, hyperlipidemia, hypertension, myocardial infarction and ESRD. Current regimen is Monday [facility] in [place] with Dr. Jones. Has not missed any treatment per patient, unable to access records at this time, he does state last treatment was Monday. He typically runs 3-1/2 hours and his estimated dry weight is 67 kg. He has dialysis via fistula to the right upper extremity. He states he often has prolonged bleeding after dialysis, will assess tomorrow after dialysis. Denies chest pain. Admits to feeling short of breath. Denies nausea, vomiting or diarrhea. He lives at home with his . He denies etoh or tobacco use for 25 years. Denies illicit drug use. [facility] were consulted to manage inpatient dialysis. Will plan on dialysis tomorrow. Past Med Surg Social Fam HX - Past Medical History Medical history: cancer, COPD, dialysis, hyperlipidemia, hypertension, myocardial infarction Additional medical history: ESRD, dialysis Psychiatric history: no psych history - Past Surgical History Surgical History: cancer surgery Additional surgical history: R nephrectomy, neck surgery disk replacement, lower back surgery x 3, left upper arm, cancer surgery - Social History Smoking Status: Former smoker Smokeless Tobacco Status: No Alcohol use: none Drug use: none Medications and Allergies Albuterol Sulfate [Proventil Inhaler] 2 puff IH QID PRN 08/05/16 [History] Allopurinol [Zyloprim 100 MG] 100 mg PO DAILY 08/05/16 [History] Furosemide [Lasix] 40 mg PO DAILY 08/05/16 [History] Metoprolol [Lopressor] 50 mg PO BID 08/05/16 [History] Omeprazole [PriLOSEC] 20 mg PO BID 08/05/16 [History] Sevelamer [Renvela] 3,200 mg PO TIDWM 08/05/16 [History] Sodium Bicarbonate 650 mg PO BID 08/05/16 [History] Terazosin [Hytrin] 1 mg PO HS 08/05/16 [History] Albuterol Neb [Proventil Neb] 2.5 mg IH QID PRN 02/25/19 [History] Aspirin [Lo-Dose Aspirin EC] 81 mg PO DAILY 02/25/19 [History] Atorvastatin [Lipitor] 20 mg PO HS 02/25/19 [History] Azithromycin [Azithromycin 6-Tab Pack] 250 mg PO PER PKG DI 02/25/19 [History] Folic Acid/Vit B Complex and C [Dialyvite Tablet] 1 tab PO DAILY 02/25/19 [Histo ry] Isosorbide MONOnitrate [Isosorbide Mononitrate ER] 30 mg PO DAILY 02/25/19 [History] Lisinopril [Zestril] 20 mg PO BID 02/25/19 [History] NIFEdipine [Nifedipine ER] 60 mg PO DAILY 02/25/19 [History] Polyvinyl Alcohol [Artificial Tears] 1 drop OP QID PRN 02/25/19 [History] Tiotropium [Spiriva] 18 mcg IH 0700 02/25/19 [History] Allergy/AdvReac Type Severity Reaction Status Date / Time naproxen Allergy Itching Verified 01/27/15 17:36 Review of Systems All Systems review (narrative): The remainder of the systems are negative. Constitutional: fatigue, no chills, no fever(s) Cardiovascular: dyspnea, dyspnea on exertion, no chest pain, no edema, no irregular heart rhythm Gastrointestinal: no diarrhea, no nausea, no vomiting Genitourinary Male: no hematuria Exam - Vital Signs Vital signs: Initial Vital Signs Temp Pulse Resp BP Pulse Ox 98.1 F 81 22 170/68 97 02/25/19 12:49 02/25/19 12:49 02/25/19 12:49 02/25/19 12:49 02/25/19 12:49 Vital Signs - Last 8 Hours Temp Pulse Resp BP Pulse Ox 02/26/19 08:10 93 02/26/19 07:59 98.4 F 87 18 191/75 90 02/26/19 07:15 16 94 02/26/19 05:44 169/67 02/26/19 05:30 87 171/73 02/26/19 05:19 170/74 02/26/19 05:00 174/71 02/26/19 03:55 98.9 F 73 16 183/77 95 Intake and Output 02/25/19 02/26/19 02/26/19 23:59 07:59 15:59 Intake Total 240 / 840 0 / 340 340 / 340 Output Total 250 / 250 Balance 240 / 840 -250 / 90 340 / 90 Intake: IV Fluids 100 / 100 Zosyn 3.375 GM In 0.9 % Sodium 100 / 100 Chloride (Mini-Bag +) 100 ML @ 25 mls/hr IVPB Q12HR [facility] Rx#: [id number] Oral 240 / 240 0 / 240 240 / 240 Output: Urine 250 / 250 Other: Meal Dinner Breakfast Percent of Meal Consumed 100% 100% Weight 77.1 kg - General Appearance General appearance: well-developed, well-nourished EENT: ATNC, hearing intact, vision intact Neck: supple Respiratory: clear Cardiology: edema (Trace bilateral lower extremity edema noted.), normal S1, normal S2 - Dialysis Access Dialysis Vascular Access: Arteriovenous Fistula thrill: Yes bruit: Yes Gastrointestinal: normoactive bowel sounds, no tenderness, no guarding Integumentary: no rash, warm and dry Neurologic: alert and oriented x3 Musculoskeletal: no deformities, no erythema Results - Lab Results 02/26/19 05:53 02/26/19 05:53 Most recent lab results 02/26/19 05:53 Calcium 8.4 L Consult Discharge Plan - Plan [facility]errals: [facility] [Primary Care Provider] -
[2019-02-26] MEDS ORDERED: *HR* HYDROcodone/Acet 5/325 mg TABLET PO ONE (12:42)
--- NOTE | 2019-02-26 12:56 | IR Procedure Note ---
Date of procedure: 02/26/19 Consent Obtained: Written consent Timeout: Correct patient and procedure verified, Correct site verified, Time out performed, Skin prep completed Local anesthetic: Lidocaine 1% Was there an escrow assistant present: Yes Annual Campaign Manager: Haile Diego Estimated blood loss (cc): 0 Indications: left pleural effusion, shortness of breath Procedure Performed: left thoracentesis Site/Technique: left chest Results/Findings (any specimens removed): 1500 cc removed Post Procedure Treatment Plan: chest xray Specimen: NA
[2019-02-26] MEDS ORDERED: Aminoglycoside Consult 1 EACH MC ONE (13:44)
[2019-02-26 14:32] LABS: RBC,Pleural Fluid < 0.002 M/mcL
[2019-02-26 14:38] LABS: Appearance of Pleural Fl Clear (Clear)
[2019-02-26 14:44] LABS: Glucose,Pleural Fluid 123 mg/dL (No Ref Range); LDH,Pleural Fluid 45 Units/L (No Ref Range); Total Protein,Pleural Fluid < 3.0 g/dL
[2019-02-26] MEDS: Sennosides/Docusate Sodium TABLET PO SCH (15:44)
--- NOTE | 2019-02-26 15:49 | Palliative - Consult Note ---
Date of Encounter: 02/26/19 Time of Encounter: 15:45 - Assessment and Plan (1) Generalized pain Current Visit: Yes Status: Acute Assessment and plan: Patient c/o general arthalgia discomfort as well as pleuritic type chest pain l ikely from earlier thoracentesis. He had Vicodin earlier with little relief. Will order Oxycodone 5mg every 8 hours and monitor. Flexaril was also added by primary team. (2) Advanced care planning/counseling discussion Current Visit: Yes Status: Acute Assessment and plan: Discussed with patient at bedside. His adv directives were already completed at the [facility] and have been faxed here and placed on record. His primary physician is with the [facility] team at the [facility]. He is still independent in all ADL's and still drives. Lives with , Sammie, who recently had CVA. 3 children - one daughter resides in [place], oone in [place], and son resides in [place]. Son was here visiting at the time of pt admission. Patient states that he desires to continue present level of care, however, does not want resuscitation for cardiac arrest and does not desire intubation. Discussed levels of code s tatus, (Full, DNR-Arrest, DNRCC) and his wishes. Code status transitioned to DNR/DNI. STate form completed and signed by patient. Copies placed in medical record as well as made for family. Patient asked I call and discuss this with his . Spoke with patient's Sammie, along with son Tristen and informed them of this changed. They verbalized understanding. D/W primary nurse Arlen and notified Dr. Spring as well. (3) ESRD (end stage renal disease) Current Visit: No Status: Acute Assessment and plan: Patient continues with dialysis M/W/F. (4) COPD (chronic obstructive pulmonary disease) Current Visit: No Status: Chronic Qualifiers: Emphysema type: unspecified Qualified Code(s): J43.9 - Emphysema, unspecified Palliative-CN HPI - Data of Consult Requesting Physician: Garfield Spring Primary Care Provider: [facility] - Consult Narrative History of present illness: Mr. Laurent is a 78 year old male [facility] patient who presented with shortness of breath after dialysis yesterday. He was seen initially at the [facility], and was sent here. He has hx of RCC s/p nephrectomy leading to ESRD on HD M/W/F, COPD, DVT, and CHF. He had increased shortness of breath and cough 24 hours prior to admission. Went to the [facility] 02/22 and was noted to have pneumonia on the right side and pleural effusion on the left side of his chest x-ray and p rescribed a Z-Ascencion. Transferred to [facility] because [facility] does not have dialysis unit. CTA completed with moderate left and small right pleural effusions with concern for underlying pneumonia on the left. He had thoracentesis today with 1500ml fluid removed. He has had one positive blood culture thus far, sensitivity is pending, and is receiving Vancomycin/Zosyn atb therapy. Upon my visit, he is resting quietly, but grimaces with pain occasionally and states this is from the fluid removal. States that Vicodin given earlier did not help his discomfort. States breathing slightly better, currently on 2l NC. Does not utilize oxygen at home. Denies n/v, anxiety. States occasionally has constipation. No family at bedside. CC: Garfield Spring - Time Spent with Patient Time: Total time spent is greater than 50% in coordination of care (as documented) at patient's floor/unit and/or counseling patient: Time with patient: 75 minutes Past Med Surg Social Fam HX - Past Medical History Medical history: cancer, COPD, dialysis, hyperlipidemia, hypertension, myoca rdial infarction Additional medical history: ESRD, dialysis Psychiatric history: no psych history - Past Surgical History Surgical History: cancer surgery Additional surgical history: R nephrectomy, neck surgery disk replacement, lower back surgery x 3, left upper arm, cancer surgery - Social History Smoking Status: Former smoker Smokeless Tobacco Status: No Alcohol use: none Drug use: none Medications and Allergies Albuterol Sulfate [Proventil Inhaler] 2 puff IH QID PRN 08/05/16 [History] Allopurinol [Zyloprim 100 MG] 100 mg PO DAILY 08/05/16 [History] Furosemide [Lasix] 40 mg PO DAILY 08/05/16 [History] Metoprolol [Lopressor] 50 mg PO BID 08/05/16 [History] Omeprazole [PriLOSEC] 20 mg PO BID 08/05/16 [History] Sevelamer [Renvela] 3,200 mg PO TIDWM 08/05/16 [History] Sodium Bicarbonate 650 mg PO BID 08/05/16 [History] Terazosin [Hytrin] 1 mg PO HS 08/05/16 [History] Albuterol Neb [Proventil Neb] 2.5 mg IH QID PRN 02/25/19 [History] Aspirin [Lo-Dose Aspirin EC] 81 mg PO DAILY 02/25/19 [History] Atorvastatin [Lipitor] 20 mg PO HS 02/25/19 [History] Azithromycin [Azithromycin 6-Tab Pack] 250 mg PO PER PKG DI 02/25/19 [History] Folic Acid/Vit B Complex and C [Dialyvite Tablet] 1 tab PO DAILY 02/25/19 [History] Isosorbide MONOnitrate [Isosorbide Mononitrate ER] 30 mg PO DAILY 02/25/19 [History] Lisinopril [Zestril] 20 mg PO BID 02/25/19 [History] NIFEdipine [Nifedipine ER] 60 mg PO DAILY 02/25/19 [History] Polyvinyl Alcohol [Artificial Tears] 1 drop OP QID PRN 02/25/19 [History] Tiotropium [Spiriva] 18 mcg IH 0700 02/25/19 [History] Allergy/AdvReac Type Severity Reaction Status Date / Time naproxen Allergy Itching Verified 01/27/15 17:36 - Constitutional Constitutional ROS PAL: malaise - EENT Eyes: as per HPI Ears: as per HPI - Cardiovascular Cardiovascular ROS: dyspnea on exertion - Respiratory Respiratory: dyspnea, wheezing - Gastrointestinal Gastrointestinal: constipation - Genitourinary Genitourinary ROS male: as per HPI - Musculoskeletal Musculoskeletal ROS IM: arthralgias - Integumentary ROS Integumentary: as per HPI - Neurological Neurological ROS: as per HPI - Psychiatric Psychiatric general PM: as per HPI Palliative Care-Exam - Constitutional Vitals: Temp Pulse Resp BP Pulse Ox 98.4 F 93 16 185/81 95 02/26/19 07:59 02/26/19 12:47 02/26/19 12:47 02/26/19 13:01 02/26/19 12:47 General appearance: Present: no acute distress - Head Head Exam: Present: normal inspection, normocephalic - Eye Eye exam: Present: normal appearance, PERRL - Respiratory Respiratory exam: Present: decreased breath sounds, CTAB - Cardiovascular Cardiovascular exam: Present: +S1, +S2 - GI/Abdominal Exam GI/Abdominal exam: Present: normal bowel sounds, soft - Extremities Exam Extremities exam: Present: normal capillary refill, normal inspection Additional comments: AV fistula noted with + thrill RUE - Neurological Exam Neurological exam: Present: alert, oriented X3, strengths equal and symetr throughout - Psychiatric Psychiatric exam: Present: normal affect, normal mood - Skin Skin exam: Present: dry, pallor, warm Internal Medicine - CN: Reslt - Labs CBC & Chem 7: 02/26/19 05:53 02/26/19 05:53 Labs: Short CBC 02/25/19 02/26/19 Range/Units 17:34 05:53 WBC 3.8 L 3.8 L (4.3-11.1) K/mcL Hgb 8.2 L 7.9 L (12.9-16.9) g/dL Hct 24.9 L 24.1 L (37.5-50.1) % Plt Count 94 L 90 L (140-400) K/mcL Neutrophils # 2.5 2.1 (1.6-8.9) K/mcL BMP 02/25/19 02/26/19 17:34 05:53 Sodium 138 141 Potassium 3.4 L 3.8 Chloride 102 104 Carbon Dioxide 30 H 26 BUN 25 H 35 H Creatinine 4.03 H 5.17 H Glucose 181 H 100 Calcium 8.4 L 8.4 L Liver Function 02/25/19 02/26/19 Range/Units 17:34 07:50 Total Bilirubin 0.7 0.6 (0.3-1.0) mg/dL Direct Bilirubin 0.1 (0.0-0.2) mg/dL AST 10 L 9 L (13-39) Units/L ALT 7 6 L (7-52) Units/L Alkaline Phosphatase 49 44 (34-104) Units/L Albumin 3.2 L 2.9 L (3.5-5.7) g/dL - ABG Interpretation ABG results: PT/INR, D-dimer PT 11.8 Seconds (9.4-12.1) 02/25/19 17:34 - Impressions Impressions Chest CTA 02/25/19 16:19 IMPRESSION: No pulmonary embolus. Moderate left and small right pleural effusions. Left lower lobe consolidation and partial consolidation of the left upper lobe, right lower lobe, and right upper lobe. Patchy scattered ground-glass attenuation and parenchymal opacities in the right upper lobe. Findings may be related to edema however superimposed infection also consideration. Recommend follow-up in 3 months. D/ / Hailey Pierre MD / Hailey Pierre MD Interpreting Provider: Hailey Pierre MD Thoracentesis 02/26/19 12:54 IMPRESSION: Successful ultrasound guided thoracentesis. D/ / Wilfredo Lee / Wilfredo Lee Interpreting Provider: Wilfredo Lee Chest X-Ray 02/26/19 12:55 IMPRESSION: No pneumothorax following left-sided thoracentesis. Moderate left basilar atelectasis and probable very small to small left pleural effusion remaining. Moderate right upper lobe pneumonia. Very small right pleural effusion. D/ / Tito Cool MD / Tito Cool MD Interpreting Provider: Tito Cool MD Consult Discharge Plan - Plan [facility]errals: [facility] [Primary Care Provider] - Palliative Quality Palliative Quality: Screen for Code Status: Yes, Screen for Goals of Care: Yes, Screen for Pain: Yes, If Pain Regimen Started, Initiate Bowel Regimen: NA, Screen for Nausea/Vomitting: Yes Code Status: 02/25/19 18:33 Resuscitation Status: Active [RES] Routine Comment: Resuscitation Status: Full Code 02/26/19 06:51 Resuscitation Status: Active [RES] Routine Comment: Discussed and verified personally w/patient Resuscitation Status: Full Code 02/26/19 15:03 DNR [Resuscitation Status: Active] [RES] Routine Comment: Resuscitation Status: [id number]
[2019-02-26 17:08] LABS: Hepatitis B Surface Antibody < 3.10 mIU/mL
[2019-02-26 17:18] LABS: Hepatitis B Surface Antigen Nonreactive (Nonreactive)
[2019-02-26] MEDS: *HR* OxyCODONE Immed Rel 5 MG TABLET PO PRN (20:28)
[2019-02-27] MEDS: Piperacillin/Tazobactam 3.375 GM in 0.9 % Sodium Chloride Mini Bag 100 ML IVPB SCH ×2 (04:59→15:17)
[2019-02-27 05:45] LABS: Hematocrit 23.8 % (37.5-50.1); Hemoglobin 7.7 g/dL (12.9-16.9); Mean Corpuscular HGB Conc 32.4 g/dL (31.6-35.5); Mean Corpuscular Hemoglobin 36.7 pg (28.0-33.3); Mean Corpuscular Volume 113.3 fL (83.0-100.0); Mean Platelet Volume 13.2 fL (9.4-12.4); Red Cell Distribution Width 15.3 % (11.5-14.5); White Blood Count 3.7 K/mcL (4.3-11.1)
[2019-02-27 05:47] LABS: Platelet Count 90 K/mcL (140-400)
[2019-02-27 06:13] LABS: Calcium 8.2 mg/dL (8.6-10.3); Potassium 3.8 mEq/L (3.5-5.1)
[2019-02-27 06:17] LABS: Thyroid Stimulating Hormone 0.954 mcIU/mL (0.340-5.600)
[2019-02-27 06:30] LABS: Folate > 22.3 ng/mL (3.0-16.0); Vitamin B12 457 pg/mL (250-1100)
[2019-02-27] MEDS ORDERED: 0.9 % Sodium Chloride 250 ML IVC PRN (07:18)
[2019-02-27] MEDS ORDERED: 0.9 % Sodium Chloride 1,000 ML PRIME SCH (07:30)
[2019-02-27] MEDS: Tiotropium 18 MCG inhalation IH SCH (07:46)
[2019-02-27] MEDS: Isosorbide MONOnitrate (24 HR) 30 MG TAB.ER.24H PO SCH (08:15)
[2019-02-27] MEDS: Aspirin Enteric Coated 81 MG Tablet PO SCH (08:16)
[2019-02-27] MEDS: *HR* OxyCODONE Immed Rel 5 MG TABLET PO PRN ×2 (08:16→15:16)
[2019-02-27] MEDS: NIFEdipine XL (24 HR) 30 MG TAB.ER.24 PO SCH (08:16)
[2019-02-27] MEDS: Lisinopril 20 MG TABLET PO SCH (08:17)
[2019-02-27] MEDS: Sennosides/Docusate Sodium TABLET PO SCH (08:17)
[2019-02-27] MEDS: Furosemide 40 MG TABLET PO SCH (08:17)
[2019-02-27] MEDS: Sodium Ferric Gluconat/Sucrose 125 MG in 0.9 % Sodium Chloride 100 ML IVPB SCH (08:25)
--- NOTE | 2019-02-27 08:59 | Palliative Progress Note ---
Date of Encounter: 02/27/19 Time of Encounter: 15:33 - Assessment and plan (1) Goals of care, counseling/discussion Current Visit: Yes Status: Acute Assessment and plan: Goals of Care discussion yesterday, 02/26/19 with Palliative Care. Pt transitioned to DNRCC-Arrest/DNI. At this time, pt continues to pursue current level of care. See Palliative Note 02/26/19 for additional details regarding goals of care discussion. Symptoms are stable currently and goals are clear. We will sign off for now. Please reconsult if further palliative issues arise. (2) Generalized pain Current Visit: Yes Status: Acute Assessment and plan: Pt reports generalized discomfort as well as pleuritic chest pain at the site of previous thoracentesis. Continue PO oxycodone 5mg Q8hrs PRN for now. Flexaril added per primary team. (3) ESRD (end stage renal disease) Current Visit: No Status: Acute Assessment and plan: Patient continues with dialysis M/W/F. (4) COPD (chronic obstructive pulmonary disease) Current Visit: No Status: Chronic Qualifiers: COPD type: emphysema Emphysema type: unspecified Qualified Code(s): J43.9 - Emphysema, unspecified (5) Palliative care by specialist Current Visit: Yes Status: Acute - Time Spent With Patient Total time spent is greater than 50% in coordination of care (as documented) at patient's floor/unit and/or counseling patient: 20 minutes - Subjective Interval history: Pt is sitting up in bed, NAD, appears comfortable on exam. Son is present at bedside during visit. Pt continues to report generalized pain and pleuritic chest pain at the site of previous thoracentesis. He feels the oxycodone is helping with this. He denies constipation, reports last BM a few days ago. We discussed the importance of regular bowel movements while on opioid therapy. Pt reports his breathing is "okay" today. He denies nausea or any additional symptoms/needs at this time. Goals of Care discussion with Palliative Care 02/26/19, pt voices understanding of current plan of care and code status of DNRCC-Arrest/DNI. Son confirms clear understanding of current plan of care and denies any further questions or needs at this time. - Constitutional Vitals: Abnormal lab results WBC 3.7 K/mcL (4.3-11.1) L 02/27/19 04:55 RBC 2.10 M/mcL (4.19-5.50) L 02/27/19 04:55 Hgb 7.7 g/dL (12.9-16.9) L 02/27/19 04:55 Hct 23.8 % (37.5-50.1) L 02/27/19 04:55 MCV 113.3 fL (83.0-100.0) H 02/27/19 04:55 MCH 36.7 pg (28.0-33.3) H 02/27/19 04:55 RDW 15.3 % (11.5-14.5) H 02/27/19 04:55 Plt Count 90 K/mcL (140-400) L 02/27/19 04:55 MPV 13.2 fL (9.4-12.4) H 02/27/19 04:55 Nucleated RBCs/100 WBC 0.5 /100 WBC (0) H 02/26/19 05:53 Platelet Estimate Decreased (Normal) L 02/26/19 05:53 Immature Plt Fraction 16.8 % (1.1-6.1) H 02/26/19 05:53 Hypochromasia Present (Not Present) A 02/25/19 17:34 Anisocytosis 1+ (Not Present) A 02/26/19 05:53 Macrocytosis Present (Not Present) A 02/26/19 05:53 Potassium 3.4 mEq/L (3.5-5.1) L 02/25/19 17:34 Carbon Dioxide 30 mEq/L (23-29) H 02/25/19 17:34 BUN 45 mg/dL (8-23) H 02/27/19 04:55 Creatinine 6.59 mg/dL (0.70-1.30) H 02/27/19 04:55 Est GFR ( Amer) 10 (> 60) L 02/27/19 04:55 Est GFR (Non-Af Amer) 8 (> 60) L 02/27/19 04:55 Glucose 181 mg/dL (70-105) H 02/25/19 17:34 Calcium 8.2 mg/dL (8.6-10.3) L 02/27/19 04:55 Iron 48 mcg/dL (65-175) L 02/27/19 04:55 Transferrin 123 mg/dL (203-362) L 02/27/19 04:55 Ferritin 544 ng/mL (20-250) H 02/27/19 04:55 AST 9 Units/L (13-39) L 02/26/19 07:50 ALT 6 Units/L (7-52) L 02/26/19 07:50 Lactate Dehydrogenase 136 Units/L (140-271) L 02/26/19 07:50 B-Natriuretic Peptide 1393 pg/mL (Less than 100) H 02/25/19 17:34 Serum Total Protein 5.0 g/dL (6.4-8.9) L 02/26/19 07:50 Albumin 2.9 g/dL (3.5-5.7) L 02/26/19 07:50 Globulin 2.1 g/dL (2.4-3.5) L 02/26/19 07:50 Folate > 22.3 ng/mL (3.0-16.0) H 02/27/19 04:55 Procalcitonin 0.30 ng/mL (0.00-0.15) H 02/26/19 07:50 Hep Bs Antibody < 3.10 mIU/mL (10.00-) L 02/26/19 07:50 Staphylococcus sp PCR DETECTED (Not Detect) A 02/25/19 13:34 mecA-Methicil Res Gene DETECTED (Not Detect) A 02/25/19 13:34 Streptococcus sp PCR DETECTED (Not Detect) A 02/25/19 13:34 Exam: CONSTITUTIONAL/GENERAL: Awake, interactive, NAD, sitting up in bed. Ear/Nose/Mouth/Throat (EMNT): Patent, atraumatic. CARDIOVASCULAR: Pulse regular; No edema. No cyanosis/ischemia. RESPIRATORY: Unlabored. Symmetric, normal effort. Oxygen via NC. GASTROINTESTINAL: Soft, non-distended. GENITOURINARY: Deferred. MUSCULOSKELETAL: No deformities; No joint swelling or erythema. Right upper AV fistula +thrill. NEUROLOGIC: No gross motor or sensory deficits appreciated. PSYCHIATRY: Alert, attentive. Behavior appropriate to situation. Palliative Quality Palliative Quality: Screen for Code Status: Yes, Screen for Goals of Care: Yes, Screen for Pain: Yes, If Pain Regimen Started, Initiate Bowel Regimen: Yes (Pt currently on Senna.), Screen for Nausea/Vomitting: Yes Code Status: 02/25/19 18:33 Resuscitation Status: Active [RES] Routine Comment: Resuscitation Status: Full Code 02/26/19 06:51 Resuscitation Status: Active [RES] Routine Comment: Discussed and verified personally w/patient Resuscitation Status: Full Code 02/26/19 15:03 DNR [Resuscitation Status: Active] [RES] Routine Comment: Resuscitation Status: [id number] - Labs CBC & Chem 7: 02/27/19 13:51 02/27/19 04:55 Labs: Laboratory Results - last 24 hr 02/26/19 02/26/19 02/26/19 07:50 07:50 08:09 WBC RBC Hgb Hct MCV MCH MCHC RDW Plt Count MPV Sodium Potassium Chloride Carbon Dioxide BUN Creatinine Est GFR ( Amer) Est GFR (Non-Af Amer) BUN/Creatinine Ratio Glucose Calculated Osmolality Calcium Iron % Saturation Transferrin Ferritin Vitamin B12 Folate Procalcitonin 0.30 H TSH Pleural Fluid Volume Pleural Appearance Pleural pH Pleural RBC Pleural Tot Nuc Cell Pleural Neutrophils Pleural Eosinophils Pleural Basophils Pleural Lymphocytes % Pleural Monocytes % Pleural Other Cells % Pleural Total Protein Pleural LDH Pleural Glucose Nasal Screen MRSA (PCR) NOT DETECTED Random Vancomycin Hep Bs Antigen Nonreactive Hep Bs Antibody < 3.10 L 02/26/19 02/26/19 02/27/19 11:53 11:53 04:55 WBC 3.7 L RBC 2.10 L Hgb 7.7 L Hct 23.8 L MCV 113.3 H MCH 36.7 H MCHC 32.4 RDW 15.3 H Plt Count 90 L MPV 13.2 H Sodium Potassium Chloride Carbon Dioxide BUN Creatinine Est GFR ( Amer) Est GFR (Non-Af Amer) BUN/Creatinine Ratio Glucose Calculated Osmolality Calcium Iron % Saturation Transferrin Ferritin Vitamin B12 Folate Procalcitonin TSH Pleural Fluid Volume 950.0 Pleural Appearance Clear Pleural pH 7.00 Pleural RBC < 0.002 Pleural Tot Nuc Cell 126 Pleural Neutrophils 3.0 Pleural Eosinophils Test Not Performed Pleural Basophils Test Not Performed Pleural Lymphocytes % 89.0 Pleural Monocytes % 6.0 Pleural Other Cells % 2.0 Pleural Total Protein < 3.0 Pleural LDH 45 Pleural Glucose 123 Nasal Screen MRSA (PCR) Random Vancomycin Hep Bs Antigen Hep Bs Antibody 02/27/19 02/27/1919 04:55 04:55 04:55 WBC RBC Hgb Hct MCV MCH MCHC RDW Plt Count MPV Sodium 139 Potassium 3.8 Chloride 103 Carbon Dioxide 26 BUN 45 H Creatinine 6.59 H Est GFR ( Amer) 10 L Est GFR (Non-Af Amer) 8 L BUN/Creatinine Ratio 7 Glucose 103 Calculated Osmolality 300 Calcium 8.2 L Iron 48 L % Saturation 28 Transferrin 123 L Ferritin 544 H Vitamin B12 457 Folate > 22.3 H Procalcitonin TSH 0.954 Pleural Fluid Volume Pleural Appearance Pleural pH Pleural RBC Pleural Tot Nuc Cell Pleural Neutrophils Pleural Eosinophils Pleural Basophils Pleural Lymphocytes % Pleural Monocytes % Pleural Other Cells % Pleural Total Protein Pleural LDH Pleural Glucose Nasal Screen MRSA (PCR) Random Vancomycin 18 Hep Bs Antigen Hep Bs Antibody - Impressions Impressions Thoracentesis 02/26/19 12:54 IMPRESSION: Successful ultrasound guided thoracentesis. D/ / Wilfredo Lee / Wilfredo Lee Interpreting Provider: Wilfredo Lee Chest X-Ray 02/26/19 12:55 IMPRESSION: No pneumothorax following left-sided thoracentesis. Moderate left basilar atelectasis and probable very small to small left pleural effusion remaining. Moderate right upper lobe pneumonia. Very small right pleural effusion. D/ / Tito Cool MD / Tito Cool MD Interpreting Provider: Tito Cool MD Echocardiogram 02/26/19 19:55 Impressions: LVEF 60-65%. Normal LV chamber size. Moderate concentric left ventricular hypertrophy. Moderate left ventricular diastolic dysfunction. Normal right ventricular structure and function. Moderate biatrial enlargement Moderate aortic regurgitation. Mild-moderate pulmonic regurgitation. Unable to estimate RVSP due to lack of TR jet. There is a small pericardial effusion present. There is no echocardiographic evidence of tamponade. No obvious intracardiac vegetation visualized in this study. Recommend JOYCE if clinical suspicion of endocarditis persists Left Ventricular Wall Motion: Rest Echo Findings All wall segments showed normal motion. Findings: Study Quality * Technically adequate exam. ECG Findings * Sinus rhythm with BBB. Left Ventricle * Moderate concentric left ventricular hypertrophy. * Atypical septal motion consistent with bundle branch block. * LVEF 60-65%. * Normal LV chamber size. * Moderate left ventricular diastolic dysfunction. Pericardium * There is a small pericardial effusion present. * There is no echocardiographic evidence of tamponade. Right Ventricle * Normal right ventricular structure and function. Right Atrium * Moderate biatrial enlargement Interatrial Septum * Interatrial septum not well evaluated. Aortic Valve * Trileaflet aortic valve. * Mildly sclerotic aortic valve leaflets. * Moderate aortic regurgitation. Mitral Valve * Normal mitral valve structure. * Mild mitral regurgitation. * No mitral stenosis. Tricuspid Valve * Normal tricuspid valve structure. * No tricuspid stenosis. * Trace tricuspid regurgitation. * Unable to estimate RVSP due to lack of TR jet. Pulmonic Valve * Mild-moderate pulmonic regurgitation. * Pulmonic valve not well visualized. Aorta * Normally sized aortic root. IVC * Normal IVC dimensions and inspiratory collapse. Pulmonary Artery * Normal visualized portions of the main pulmonary artery. - ABG Interpretation ABG results: PT/INR, D-dimer PT 11.8 Seconds (9.4-12.1) 02/25/19 17:34 Consult Discharge Plan - Plan [facility]errals: [facility] [Primary Care Provider] -
--- NOTE | 2019-02-27 10:22 | Nephrology Progress Note ---
Date of Encounter: 02/27/19 Time of Encounter: 10:19 - Assessment and Plan (1) ESRD (end stage renal disease) on dialysis Current Visit: Yes Status: Acute Current regimen is MWF at [facility]. HD in progress for today, tolerating well. Renal diet Renal vitamins Strict I/O Avoid nephrotoxins and renal dose all medications. Will order additional UF or HD as needed. (2) Acute on chronic respiratory failure with hypoxia Current Visit: Yes Status: Acute Plan for IR to do thoracentesis per primary team. 1500 cc removed per IR note. (3) Pleural effusion Current Visit: Yes Status: Resolved Plan for IR completed thoracentesis 02/26/19. (4) Hypertension Current Visit: Yes Status: Chronic Stable, titrate medications accordingly. Qualifiers: Hypertension type: essential hypertension Qualified Code(s): I10 - Essential (primary) hypertension (5) Anemia in chronic kidney disease (CKD) Current Visit: No Status: Acute Hgb is 7.7, stable. not yet at goal. Aranesp ordered. Qualifiers: Qualified Code(s): N18.9 - Chronic kidney disease, unspecified; D63.1 - Anemia in chronic kidney disease Subjective Principal diagnosis: difficulty in breathing Interval history: Pt seen and examined in HD, tolerating well. Denies chest pain admits to shortness of breath. Denies nausea, vomiting, diarrhea. Objective - Vital Signs Vital signs: Vital Signs Temp Pulse Resp BP Pulse Ox 02/27/19 09:21 16 161/75 94 02/27/19 07:56 97.3 F L 76 18 161/75 92 02/27/19 04:31 97.9 F 83 15 150/67 93 02/27/19 00:07 98.7 F 80 16 133/64 88 02/26/19 19:47 97.5 F L 81 17 174/72 93 02/26/19 16:18 98.1 F 02/26/19 15:48 82 16 145/64 92 02/26/19 13:01 185/81 02/26/19 12:47 93 16 185/81 95 Intake and Output 02/26/19 02/27/19 02/27/19 23:59 07:59 15:59 Intake Total 100 / 440 0 / 0 Output Total 100 / 350 Balance 0 / 90 0 / 0 Intake: IV Fluids 100 / 200 Zosyn 3.375 GM In 0.9 % Sodium 100 / 200 Chloride (Mini-Bag +) 100 ML @ 25 mls/hr IVPB Q12HR AMBROSE Rx#: [id number] Oral 0 / 0 Output: Urine 100 / 350 Other: # Voids 1 - General Appearance General appearance: Present: well-developed, well-nourished EENT: Present: ATNC, hearing intact, vision intact Neck: Present: supple Respiratory: Present: clear Cardiology: Present: edema (non pitting edema noted to bilat lower extremities.), normal S1, normal S2 Dialysis Vascular Access: Arteriovenous Fistula thrill: Yes bruit: Yes Gastrointestinal: Present: normoactive bowel sounds, no tenderness, no guarding Integumentary: Present: no rash, warm and dry Neurologic: Present: alert and oriented x3 Musculoskeletal: Present: no deformities, no erythema Psychiatric: Present: mood/affect appropriate, cooperative - Lab 02/27/19 04:55 02/27/19 04:55 Most recent lab results 02/27/19 04:55 Calcium 8.2 L Consult Discharge Plan - Plan Referrals: [facility] [Primary Care Provider] -
--- NOTE | 2019-02-27 11:35 | Internal Med Progress Note ---
Hospitalist Progress Note - Encounter Date of Encounter: 02/27/19 Time of Encounter: 10:30 - Subjective Interval History: Patient was seen this morning before dialysis. He denied chest pain, shortness of breath or palpitation. 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 He had no fever, chills or night sweats. - Exam Vitals: Temp Pulse Resp BP Pulse Ox 97.3 F L 76 16 161/75 94 02/27/19 07:56 02/27/19 07:56 02/27/19 09:21 02/27/19 09:21 02/27/19 09:21 Exam: General: Alert and oriented 3, no distress HEENT: No erythema of posterior pharynx. No exudates. Lymphatics: No mandibular or cervical lymphadenopathy Cardiovascular: RRR. No murmurs. No chest wall tenderness. Lungs: Decreased breath sounds on left. Abdomen: Non-tender. No rebound or gaurding. Nl bowel sounds. Extremities: . 2+ pulses radial and pedal pulses. Right upper extremity AV fistula with bruit. Skin: No rahses, abrasions, or contusions. Nl cap refill. Psych: Nl attention. 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 5/5 strength. Skin; multiple bruises scattered all over the body - Assessment and Plan (1) Pleural effusion Current Visit: Yes Status: Resolved (2) Acute on chronic respiratory failure with hypoxia Current Visit: Yes Status: Acute (3) ESRD (end stage renal disease) Current Visit: No Status: Acute (4) Renal cell carcinoma Current Visit: No Status: Resolved (5) Hx of deep venous thrombosis Current Visit: Yes Status: Acute (6) Pneumonia Current Visit: Yes Status: Acute (7) Hypertension Current Visit: Yes Status: Chronic (8) Pancytopenia Current Visit: Yes Status: Chronic (9) Sepsis Current Visit: Yes Status: Acute - Summary of Assessment and Plan Summary of Assessment and Plan: 78 years old male with history of RCC status post nephrectomy, end-stage renal disease on HD, DVT not on anticoagulation, COPD not on oxygen, essential hypertension [facility]. Pneumonia: CT with LLL,LILIANA,RLL,RUL consolidation. He has leukopenia, afebrile, hemodynamically stable. Continue renally dosed Zosyn 2/7, DC VAC. Streptococcus and Legionella antigens are -. Blood cultures growing gram- positive cocci and 1/2. Follow cultures are negative so far. Sepsis: meet 2/4, management as per above. Pleural effusion:likely due to HFpEF. Moderate on the left side, transudative, had 1.5 L removed by IR, follow-up x-ray with no pneumothorax and a clearing of pleural effusion, fluid cultures are pending. Repeat x-ray tomorrow. Echo: EF 60-65%, LVH, moderate DD. COPD: Continue home dose inhalers. Acute hypoxic respiratory failure: 2/2 above, currently on 3L. CTA is - for PE. HTN: controlled, continue nifedipine 90 mg, Coreg and lisinopril. Pancytopenia: unsure about his baseline, likely from sepsis OR MDS. Check folic acid, TSH, B12 are normal. iron profile is low . Check CBC tomorrow End-stage renal disease on HD MWF: Consult nephrology. today for HD. Prolonged QTc: repeat EKG with resolution, continue telemetry bed. DVT: In the right lower extremity, diagnosed a few months ago and patient refused therapy due to easy bleeding. DVT ppx: SCD. Disposition: Inpatient, anticipate discharging him to days - Time Spent with Patient Total time spent is greater than 50% in coordination of care (as documented) at patient's floor/unit and/or counseling patient: Plan of Care Discussed with: patient Internal Medicine: Result - Labs CBC & Chem 7: 02/27/19 04:55 02/27/19 04:55 Labs: Short CBC 02/27/19 Range/Units 04:55 WBC 3.7 L (4.3-11.1) K/mcL Hgb 7.7 L (12.9-16.9) g/dL Hct 23.8 L (37.5-50.1) % Plt Count 90 L (140-400) K/mcL BMP 02/27/19 04:55 Sodium 139 Potassium 3.8 Chloride 103 Carbon Dioxide 26 BUN 45 H Creatinine 6.59 H Glucose 103 Calcium 8.2 L - ABG Interpretation ABG results: PT/INR, D-dimer PT 11.8 Seconds (9.4-12.1) 02/25/19 17:34 - Impressions Impressions Thoracentesis 02/26/19 12:54 IMPRESSION: Successful ultrasound guided thoracentesis. D/ / Wilfredo Lee / Wilfredo Lee Interpreting Provider: Wilfredo Lee Chest X-Ray 02/26/19 12:55 IMPRESSION: No pneumothorax following left-sided thoracentesis. Moderate left basilar atelectasis and probable very small to small left pleural effusion remaining. Moderate right upper lobe pneumonia. Very small right pleural effusion. D/ / Tito Cool MD / Tito Cool MD Interpreting Provider: Tito Cool MD Echocardiogram 02/26/19 19:55 Impressions: LVEF 60-65%. Normal LV chamber size. Moderate concentric left ventricular hypertrophy. Moderate left ventricular diastolic dysfunction. Normal right ventricular structure and function. Moderate biatrial enlargement Moderate aortic regurgitation. Mild-moderate pulmonic regurgitation. Unable to estimate RVSP due to lack of TR jet. There is a small pericardial effusion present. There is no echocardiographic evidence of tamponade. No obvious intracardiac vegetation visualized in this study. Recommend JOYCE if clinical suspicion of endocarditis persists Left Ventricular Wall Motion: Rest Echo Findings All wall segments showed normal motion. Findings: Study Quality * Technically adequate exam. ECG Findings * Sinus rhythm with BBB. Left Ventricle * Moderate concentric left ventricular hypertrophy. * Atypical septal motion consistent with bundle branch block. * LVEF 60-65%. * Normal LV chamber size. * Moderate left ventricular diastolic dysfunction. Pericardium * There is a small pericardial effusion present. * There is no echocardiographic evidence of tamponade. Right Ventricle * Normal right ventricular structure and function. Right Atrium * Moderate biatrial enlargement Interatrial Septum * Interatrial septum not well evaluated. Aortic Valve * Trileaflet aortic valve. * Mildly sclerotic aortic valve leaflets. * Moderate aortic regurgitation. Mitral Valve * Normal mitral valve structure. * Mild mitral regurgitation. * No mitral stenosis. Tricuspid Valve * Normal tricuspid valve structure. * No tricuspid stenosis. * Trace tricuspid regurgitation. * Unable to estimate RVSP due to lack of TR jet. Pulmonic Valve * Mild-moderate pulmonic regurgitation. * Pulmonic valve not well visualized. Aorta * Normally sized aortic root. IVC * Normal IVC dimensions and inspiratory collapse. Pulmonary Artery * Normal visualized portions of the main pulmonary artery. Consult Discharge Plan - Plan [facility]errals: [facility] [Primary Care Provider] - (4) Renal cell carcinoma Qualifiers: Laterality: right Qualified Code(s): C64.1 - Malignant neoplasm of right kidney, except renal pelvis (6) Pneumonia Qualifiers: Pneumonia type: due to unspecified organism Laterality: bilateral Lung location: unspecified part of lung Qualified Code(s): J18.9 - Pneumonia, unspecified organism (7) Hypertension Qualifiers: Hypertension type: essential hypertension Qualified Code(s): I10 - Essential (primary) hypertension (9) Sepsis Qualifiers: Sepsis type: sepsis due to unspecified organism Sepsis acute organ dysfunc tion status: with acute organ dysfunction Severe sepsis acute organ dysfunction type: acute respiratory failure Acute respiratory failure type: with hypoxia Severe sepsis shock status: without septic shock Qualified Code(s): A41.9 - Sepsis, unspecified organism; R65.20 - Severe sepsis without septic shock; J96.01 - Acute respiratory failure with hypoxia
--- NOTE | 2019-02-27 14:39 | Oncology Inp Consult Note ---
<Marc Stiles - Last Filed: 02/27/19 20:28> Date of Encounter: 02/27/19 - Data of Consult Requesting Physician: Garfield Spring Primary Care Provider: PRIYANK JOHNSON Medications and Allergies Albuterol Sulfate [Proventil Inhaler] 2 puff IH QID PRN 08/05/16 [History] Allopurinol [Zyloprim 100 MG] 100 mg PO DAILY 08/05/16 [History] Furosemide [Lasix] 40 mg PO DAILY 08/05/16 [History] Metoprolol [Lopressor] 50 mg PO BID 08/05/16 [History] Omeprazole [PriLOSEC] 20 mg PO BID 08/05/16 [History] Sevelamer [Renvela] 3,200 mg PO TIDWM 08/05/16 [History] Sodium Bicarbonate 650 mg PO BID 08/05/16 [History] Terazosin [Hytrin] 1 mg PO HS 08/05/16 [History] Albuterol Neb [Proventil Neb] 2.5 mg IH QID PRN 02/25/19 [History] Aspirin [Lo-Dose Aspirin EC] 81 mg PO DAILY 02/25/19 [History] Atorvastatin [Lipitor] 20 mg PO HS 02/25/19 [History] Azithromycin [Azithromycin 6-Tab Pack] 250 mg PO PER PKG DI 02/25/19 [History] Folic Acid/Vit B Complex and C [Dialyvite Tablet] 1 tab PO DAILY 02/25/19 [History] Isosorbide MONOnitrate [Isosorbide Mononitrate ER] 30 mg PO DAILY 02/25/19 [History] Lisinopril [Zestril] 20 mg PO BID 02/25/19 [History] NIFEdipine [Nifedipine ER] 60 mg PO DAILY 02/25/19 [History] Polyvinyl Alcohol [Artificial Tears] 1 drop OP QID PRN 02/25/19 [History] Tiotropium [Spiriva] 18 mcg IH 0700 02/25/19 [History] Allergy/AdvReac Type Severity Reaction Status Date / Time naproxen Allergy Itching Verified 01/27/15 17:36 Consult Discharge Plan - Plan [facility]errals: [facility] [Primary Care Provider] - Inpatient Charges Provider: Dr. Justus Stiles Consult - Inpatient Medicare Only: [id number] - Attending Attestation I examined this patient and my medical decision-making was reviewed with the Advanced Practice Nurse. I agree with the documented findings, disposition and treatment plan as described except to the extent set forth below. Mr. Laurent is a pleasant but chronically ill 78-year-old man who has had a decline in general healthy over the past 3 months. I met him earlier this month regarding an opinion of new DVT. He refused anticoagulation as recommended by his PCP as well as after my discussion. He voiced a very strong opinion about not wanting to pursue further interventions/testing. He refused blood draw at that visit. He now presents with pneumonia and pancytopenia with macrocytosis. This may represent an underlying MDS, MPN, PNH, multiple myeloma or possibly sequelae from infection. No evidence of b12 or folic acid deficiency. Evaluation for MPN, MM, PNH and hemolysis underway. He has refused BM biopsy and does not want to pursue other intervention. Understands this maybe a lifethreatening illness. Agrees to intermittent transfusion if needed. Desires to continue with HD for now. Exam significant for and elderly man in NAD. Extensive bruising about arms, stable. Diminished breath sounds. No edema. <Russell Paiz Jr - Last Filed: 02/28/19 09:22> Date of Encounter: 02/28/19 Time of Encounter: 14:36 Assessment and Plan (1) Pancytopenia Status: Chronic Assessment and plan: This is a patient transferred with known history of right leg DVT not on anticoagulation, last seen by Dr Alfonso Stiles at [facility] on 02/12/19. Also has history of renal cell carcinoma with right nephrectomy and CKD V on dialysis in [facility]. He is independent and drives himself to his dialysis appointments. The patient elected against pursuing anticoagulation as he will often bleed for up to 2 hours following needle removal after dialysis. He continues to decline anticoagulation While being treated for pneumonia, he has pancytopenia and macrocytosis during admission. Hematology Consulted for evaluation. Recommendations: 1. Due to macrocytosis, check B12, folate, also LDH, protein electrophoresis, light chains, peripheral smear. We will check BCR/ABL, JAK2, CALR and MPL codon 2. He would most likely benefit from a bone marrow biopsy. After discussion, patient declined at this time. He has agreed to conservative measures and we will watch his labs daily to see if they improve. 3. Despite not wanting BM biopsy, he does want to continue dialysis. We will continue to follow along. Dr Stiles assessed patient with me today (2) History of deep venous thrombosis (DVT) of distal vein of right lower extremity Status: Acute Assessment and plan: Deep vein thrombosis (DVT) of distal vein of right lower extremity, unspecified chronicity He was diagnosed with a right femoral/popliteal deep vein thrombosis 01/08/2019 of undetermined chronicity. It appeared subacute to chronic. He has elected against anticoagulation as outpatient when last seen at [facility] on 02/12/19 (3) History of renal cell carcinoma Status: Acute (4) Chronic kidney disease, stage V Status: Acute (5) Anemia in chronic kidney disease (CKD) Status: Acute Qualifiers: Qualified Code(s): N18.9 - Chronic kidney disease, unspecified; D63.1 - Anemia in chronic kidney disease - Data of Consult Patient: known to practice within the last 3 years Consult date: 02/27/19 Requesting Physician: Garfield Srping [facility] - Consult Narrative Reason for consult: pancytopenia History of present illness: Mr. Laurent is a pleasant 78-year-old man with history of right lower extremity deep vein thrombosis. Seen by Dr Marc Stiles at [facility]. Per the records provided by patient on last clinic visit 02/12/19. He was previously seen by "outside provider" who had requested right lower extremity ultrasound for possible blood clot. Duplex Doppler obtained by his primary care physician 01/08/2019 of the right lower extremity revealed a subacute/chronic deep vein thrombosis in the femoral vein and popliteal vein. There was discussion regarding the potential benefits of anticoagulation. The patient elected against pursuing anticoagulation as he will often bleed for up to 2 hours following needle removal after dialysis. It was recommend the patient see hematology for another opinion. He has stage V chronic kidney disease and is on hemodialysis. He also has a history of renal cell carcinoma status post right nephrectomy around 6-7 years ago. Other details of his carcinoma are unknown. CT imaging November 11, 2018 revealed calcification of a mass that was identified in 2011 cephalad to his right renal fossa. Personally reviewed his imaging reveals this mass to be stable in size, calcified consistent with prior scar. There was mention of consideration of CT or MRI renal imaging to further delineate the nature is mass. Patient is currently a dialysis patient at [facility] on Mondays,Wednesdays, and Fridays. He has a history of kidney cancer, kidney was removed approximately 6 years ago. He remains frustrated with his overall health. He states he feels fatigued and tired all the time. He is frustrated by multiple doctor's visits and hospitalizations. He presented as a transfer from the [place] ED for shortness of breath on 02/25/19. Evaluated at the [place] ED 02/22 and was noted to have pneumonia on the right side and pleural effusion on the left side of his chest x-ray and prescribed a Z-Ascencion. Did not get any benefit from Z-Ascencion. Transferred to [place] because [place] does not have dialysis unit. CTA completed with moderate left and small right pleural effusions with concern for underlying pneumonia on the left Patient with pancytopenia and macrocytosis during admission. Hematology Consulted for evaluation Past Med Surg Social Fam HX - Past Medical History Medical history: cancer, COPD, dialysis, hyperlipidemia, hypertension, myocardial infarction Additional medical history: ESRD, dialysis Psychiatric history: no psych history - Past Surgical History Surgical History: cancer surgery Additional surgical history: R nephrectomy, neck surgery disk replacement, lower back surgery x 3, left upper arm, cancer surgery - Social History Smoking Status: Former smoker Smokeless Tobacco Status: No Alcohol use: none Drug use: none Constitutional: Present: fatigue Oncology - Exam - Constitutional General appearance: cooperative, no acute distress - Head Head exam: Present: normal inspection, normocephalic - Eye Eye exam: Present: PERRL - ENT ENT exam: Present: mucous membranes moist - Neck Neck exam: Present: full ROM - Respiratory Respiratory exam: Present: decreased breath sounds - Cardiovascular Cardiovascular exam: Present: RRR - GI/Abdominal GI/Abdominal exam: Present: normal bowel sounds, soft - Extremities Exam Extremities exam: Present: full ROM, normal inspection - Neurological Exam Neurological exam: Present: alert, oriented X3, no focal deficits - Psychiatric Psychiatric exam: Present: flat affect - Skin Skin exam: Present: dry, intact Oncology Inpatient Results Labs: Laboratory Last Values WBC 3.7 K/mcL (4.3-11.1) L 02/27/19 04:55 RBC 2.10 M/mcL (4.19-5.50) L 02/27/19 04:55 Hgb 7.7 g/dL (12.9-16.9) L 02/27/19 04:55 Hct 23.8 % (37.5-50.1) L 02/27/19 04:55 MCV 113.3 fL (83.0-100.0) H 02/27/19 04:55 MCH 36.7 pg (28.0-33.3) H 02/27/19 04:55 MCHC 32.4 g/dL (31.6-35.5) 02/27/19 04:55 RDW 15.3 % (11.5-14.5) H 02/27/19 04:55 Plt Count 90 K/mcL (140-400) L 02/27/19 04:55 MPV 13.2 fL (9.4-12.4) H 02/27/19 04:55 Immature Gran % 0.8 % (0-4) 02/26/19 05:53 Seg Neutrophils % 56.2 % 02/26/19 05:53 Lymphocytes % 29.1 % 02/26/19 05:53 Monocytes % 11.0 % 02/26/19 05:53 Eosinophils % 2.6 % 02/26/19 05:53 Basophils % 0.3 % 02/26/19 05:53 Neutrophils # 2.1 K/mcL (1.6-8.9) 02/26/19 05:53 Lymphocytes # 1.1 K/mcL (0.6-4.6) 02/26/19 05:53 Monocytes # 0.4 K/mcL (0.0-1.3) 02/26/19 05:53 Eosinophils # 0.1 K/mcL (0.0-0.6) 02/26/19 05:53 Basophils # 0.0 K/mcL (0.0-0.2) 02/26/19 05:53 Nucleated RBCs/100 WBC 0.5 /100 WBC (0) H 02/26/19 05:53 Platelet Estimate Decreased (Normal) L 02/26/19 05:53 Immature Plt Fraction 16.8 % (1.1-6.1) H 02/26/19 05:53 Hypochromasia Present (Not Present) A 02/25/19 17:34 Anisocytosis 1+ (Not Present) A 02/26/19 05:53 Macrocytosis Present (Not Present) A 02/26/19 05:53 PT 11.8 Seconds (9.4-12.1) 02/25/19 17:34 INR 1.0 02/25/19 17:34 Sodium 139 mEq/L (136-145) 02/27/19 04:55 Potassium 3.8 mEq/L (3.5-5.1) 02/27/19 04:55 Chloride 103 mEq/L (98-107) 02/27/19 04:55 Carbon Dioxide 26 mEq/L (23-29) 02/27/19 04:55 BUN 45 mg/dL (8-23) H 02/27/19 04:55 Creatinine 6.59 mg/dL (0.70-1.30) H 02/27/19 04:55 Est GFR ( Amer) 10 (> 60) L 02/27/19 04:55 Est GFR (Non-Af Amer) 8 (> 60) L 02/27/19 04:55 BUN/Creatinine Ratio 7 (6-26) 02/27/19 04:55 Glucose 103 mg/dL (70-105) 02/27/19 04:55 Calculated Osmolality 300 (280-300) 02/27/19 04:55 Lactic Acid 1.1 mmol/L (0.5-2.2) 02/25/19 13:34 Calcium 8.2 mg/dL (8.6-10.3) L 02/27/19 04:55 Iron 48 mcg/dL (65-175) L 02/27/19 04:55 % Saturation 28 % (20-55) 02/27/19 04:55 Transferrin 123 mg/dL (203-362) L 02/27/19 04:55 Ferritin 544 ng/mL (20-250) H 02/27/19 04:55 Total Bilirubin 0.6 mg/dL (0.3-1.0) 02/26/19 07:50 Direct Bilirubin 0.1 mg/dL (0.0-0.2) 02/26/19 07:50 Indirect Bilirubin 0.5 mg/dL (0.0-1.2) 02/26/19 07:50 AST 9 Units/L (13-39) L 02/26/19 07:50 ALT 6 Units/L (7-52) L 02/26/19 07:50 Alkaline Phosphatase 44 Units/L (34-104) 02/26/19 07:50 Lactate Dehydrogenase 172 Units/L (140-271) 02/27/19 13:51 B-Natriuretic Peptide 1393 pg/mL (Less than 100) H 02/25/19 17:34 Serum Total Protein 5.0 g/dL (6.4-8.9) L 02/26/19 07:50 Albumin 2.9 g/dL (3.5-5.7) L 02/26/19 07:50 Globulin 2.1 g/dL (2.4-3.5) L 02/26/19 07:50 Albumin/Globulin Ratio 1.4 (1.1-2.2) 02/26/19 07:50 Vitamin B12 457 pg/mL (250-1100) 02/27/19 04:55 Folate > 22.3 ng/mL (3.0-16.0) H 02/27/19 04:55 Procalcitonin 0.30 ng/mL (0.00-0.15) H 02/26/19 07:50 TSH 0.954 mcIU/mL (0.340-5.600) 02/27/19 04:55 Pleural Fluid Volume 950.0 mL 02/26/19 11:53 Pleural Appearance Clear (Clear) 02/26/19 11:53 Pleural pH 7.00 pH Units (No Ref Range) 02/26/19 11:53 Pleural RBC < 0.002 M/mcL (0.000-0.002) 02/26/19 11:53 Pleural Tot Nuc Cell 126 TNC/mcL (0-1000) 02/26/19 11:53 Pleural Neutrophils 3.0 % 02/26/19 11:53 Pleural Eosinophils Test Not Performed 02/26/19 11:53 Pleural Basophils Test Not Performed 02/26/19 11:53 Pleural Lymphocytes % 89.0 % 02/26/19 11:53 Pleural Monocytes % 6.0 % 02/26/19 11:53 Pleural Other Cells % 2.0 % 02/26/19 11:53 Pleural Total Protein < 3.0 g/dL 02/26/19 11:53 Pleural LDH 45 Units/L (No Ref Range) 02/26/19 11:53 Pleural Glucose 123 mg/dL (No Ref Range) 02/26/19 11:53 Nasal Screen MRSA (PCR) NOT DETECTED (Not Detect) 02/26/19 08:09 Random Vancomycin 18 mcg/mL 02/27/19 04:55 A. baumannii (PCR) Not Detected (Not Detect) 02/25/19 13:34 Ashli albicans (PCR) Not Detected (Not Detect) 02/25/19 13:34 C. glabrata (PCR) Not Detected (Not Detect) 02/25/19 13:34 C. krusei (PCR) Not Detected (Not Detect) 02/25/19 13:34 C. parapsilosis (PCR) Not Detected (Not Detect) 02/25/19 13:34 C. tropicalis (PCR) Not Detected (Not Detect) 02/25/19 13:34 Enterobacteriac sp PCR Not Detected (Not Detect) 02/25/19 13:34 E. cloacae complex PCR Not Detected (Not Detect) 02/25/19 13:34 Enterococcus sp PCR Not Detected (Not Detect) 02/25/19 13:34 E. coli (PCR) Not Detected (Not Detect) 02/25/19 13:34 H. influenzae (PCR) Not Detected (Not Detect) 02/25/19 13:34 Hep Bs Antigen Nonreactive (Nonreactive) 02/26/19 07:50 Hep Bs Antibody < 3.10 mIU/mL (10.00-) L 02/26/19 07:50 Klebsiella oxytoca PCR Not Detected (Not Detect) 02/25/19 13:34 Klebsiella pneumoniae Not Detected (Not Detect) 02/25/19 13:34 List. monocytogenes PCR Not Detected (Not Detect) 02/25/19 13:34 N. meningitidis (PCR) Not Detected (Not Detect) 02/25/19 13:34 Proteus species (PCR) Not Detected (Not Detect) 02/25/19 13:34 Serratia marcescens PCR Not Detected (Not Detect) 02/25/19 13:34 Staphylococcus sp PCR DETECTED (Not Detect) A 02/25/19 13:34 Staph aureus (PCR) Not Detected (Not Detect) 02/25/19 13:34 mecA-Methicil Res Gene DETECTED (Not Detect) A 02/25/19 13:34 Streptococcus sp PCR DETECTED (Not Detect) A 02/25/19 13:34 Group A Strep DNA Not Detected (Not Detect) 02/25/19 13:34 Group B Strep (PCR) Not Detected (Not Detect) 02/25/19 13:34 Strep pneumoniae (PCR) Not Detected (Not Detect) 02/25/19 13:34 P. aeruginosa (PCR) Not Detected (Not Detect) 02/25/19 13:34 Khloe/B-Vanco Res Genes N/A (Not Detect) 02/25/19 13:34 KPC (blaKPC) Detect PCR N/A (Not Detect) 02/25/19 13:34 Blood Type A POSITIVE 02/26/19 06:39 Antibody Screen NEGATIVE 02/26/19 06:39
[2019-02-27 14:51] LABS: Folate 17.9 ng/mL (3.0-16.0)
[2019-02-27 15:11] LABS: Basophils % 0.5 %; Eosinophils # 0.2 K/mcL (0.0-0.6); Eosinophils % 3.6 %; Hematocrit 27.7 % (37.5-50.1); Hemoglobin 8.8 g/dL (12.9-16.9); Immature Granulocytes % 0.7 % (0-4); Lymphocytes # 0.8 K/mcL (0.6-4.6); Lymphocytes % 18.1 %; Mean Corpuscular HGB Conc 31.8 g/dL (31.6-35.5); Mean Corpuscular Hemoglobin 36.8 pg (28.0-33.3); Mean Corpuscular Volume 115.9 fL (83.0-100.0); Mean Platelet Volume 14.4 fL (9.4-12.4); Monocytes # 0.4 K/mcL (0.0-1.3); Neutrophils # 2.8 K/mcL (1.6-8.9); Platelet Count 99 K/mcL (140-400); Red Blood Count 2.39 M/mcL (4.19-5.50); Red Cell Distribution Width 15.3 % (11.5-14.5); Segmented Neutrophils % 67.1 %; White Blood Count 4.2 K/mcL (4.3-11.1)
[2019-02-27 15:45] LABS: Large Platelets Present (Not Present); Macrocytosis Present (Not Present)
[2019-02-27 15:46] LABS: Platelet Estimate Slight Decrease (Normal)
[2019-02-28] MEDS: Piperacillin/Tazobactam 3.375 GM in 0.9 % Sodium Chloride Mini Bag 100 ML IVPB SCH ×2 (05:35→17:04)
[2019-02-28 05:52] LABS: Hematocrit 23.3 % (37.5-50.1); Hemoglobin 7.7 g/dL (12.9-16.9); Immature Platelets 17.9 % (1.1-6.1); Mean Corpuscular Hemoglobin 36.8 pg (28.0-33.3); Mean Corpuscular Volume 111.5 fL (83.0-100.0); Red Blood Count 2.09 M/mcL (4.19-5.50); Red Cell Distribution Width 15.3 % (11.5-14.5)
[2019-02-28 06:16] LABS: Platelet Count 88 K/mcL (140-400)
[2019-02-28] MEDS: Tiotropium 18 MCG inhalation IH SCH (07:26)
[2019-02-28] MEDS: Furosemide 40 MG TABLET PO SCH (09:00)
[2019-02-28] MEDS: Aspirin Enteric Coated 81 MG Tablet PO SCH (09:00)
[2019-02-28] MEDS: Sennosides/Docusate Sodium TABLET PO SCH (09:00)
[2019-02-28] MEDS: NIFEdipine XL (24 HR) 30 MG TAB.ER.24 PO SCH (09:01)
[2019-02-28] MEDS: Isosorbide MONOnitrate (24 HR) 30 MG TAB.ER.24H PO SCH (09:01)
[2019-02-28] MEDS: Lisinopril 20 MG TABLET PO SCH (09:01)
[2019-02-28] MEDS: Sodium Ferric Gluconat/Sucrose 125 MG in 0.9 % Sodium Chloride 100 ML IVPB SCH (09:05)
[2019-02-28] MEDS: *HR* OxyCODONE Immed Rel 5 MG TABLET PO PRN (09:13)
[2019-02-28 09:50] LABS: Calcium 7.9 mg/dL (8.6-10.3); Potassium 4.1 mEq/L (3.5-5.1)
[2019-02-28] MEDS ORDERED: Acetaminophen 325 MG TABLET PO PRN (11:45)
--- NOTE | 2019-02-28 12:42 | Internal Med Progress Note ---
Hospitalist Progress Note - Encounter Date of Encounter: 02/28/19 Time of Encounter: 09:30 - Subjective Interval History: No major events overnight. Patient was seen this a.m. He denied fever, chills or night sweats. He has no nausea, vomiting or abdominal pain. Patient denied chest pain, shortness of breath or palpitation. - Exam Vitals: Temp Pulse Resp BP Pulse Ox 100.2 F H 87 16 103/51 89 02/28/19 10:56 02/28/19 10:56 02/28/19 10:56 02/28/19 10:56 02/28/19 10:56 Exam: General: Alert and oriented 3, no distress HEENT: No erythema of posterior pharynx. No exudates. Lymphatics: No mandibular or cervical lymphadenopathy Cardiovascular: RRR. No murmurs. No chest wall tenderness. Lungs: Sligh diminished lung sound on the left side Abdomen: Non-tender. No rebound or gaurding. Nl bowel sounds. Extremities: . 2+ pulses radial and pedal pulses. Right upper extremity AV fistula with bruit. Skin: No rahses, abrasions, or contusions. Nl cap refill. Psych: Nl attention. A&Ox3 Neuro: radial drill press operator for plastic II-XII intact. 5/5 strength. Skin; multiple bruises scattered all over the body - Assessment and Plan (1) Pneumonia Current Visit: Yes Status: Acute (2) Pleural effusion Current Visit: Yes Status: Resolved (3) Acute on chronic respiratory failure with hypoxia Current Visit: Yes Status: Acute (4) ESRD (end stage renal disease) Current Visit: No Status: Acute (5) Renal cell carcinoma Current Visit: No Status: Resolved (6) Hx of deep venous thrombosis Current Visit: Yes Status: Acute (7) Hypertension Current Visit: Yes Status: Chronic (8) Pancytopenia Current Visit: Yes Status: Chronic (9) Sepsis Current Visit: Yes Status: Acute - Summary of Assessment and Plan Summary of Assessment and Plan: 78 years old male with history of RCC status post nephrectomy, end-stage renal disease on HD, DVT not on anticoagulation, COPD not on oxygen, essential hypertension [facility]. Pneumonia: CT with LLL,LILIANA,RLL,RUL consolidation. leukopenia resolved, had mild temp this AM, hemodynamically stable. Continue renally dosed Zosyn 08/16. Streptococcus and Legionella antigens are -. Blood cultures growing gram-posit jaylon cocci and 1/2. Follow cultures are negative so far. Sepsis: meet 2/, management as per above. Pleural effusion:likely due to HFpEF. Moderate on the left side, transudative, had 1.5 L removed by IR, follow-up x-ray with no pneumothorax and a clearing of pleural effusion, fluid cultures are pending. Echo: EF 60-65%, LVH, moderate DD. Acute on chronic decompensated HFpEF: Spoke with nephrology service about increasing his dialysis time as 3 hours one be enough and his pleural effusion with recurs COPD: Continue home dose inhalers. Acute hypoxic respiratory failure: 2/2 above, currently on 3L. CTA is - for PE. Wean off O2. HTN: controlled, continue nifedipine 90 mg, Coreg and lisinopril. Pancytopenia: likely from sepsis OR MDS. Check folic acid, TSH, B12 are normal. iron profile is low, on day 07/20 Iron infusion. Check CBC. End-stage renal disease on HD MWF: Consult nephrology, will increase HD time to 3.5 hours. Prolonged QTc: repeat EKG with resolution, continue telemetry bed. DVT: In the right lower extremity, diagnosed a few months ago and patient refused therapy due to easy bleeding. DVT ppx: SCD. - Time Spent with Patient Total time spent is greater than 50% in coordination of care (as documented) at patient's floor/unit and/or counseling patient: Greater than 35 minutes Plan of Care Discussed with: patient Internal Medicine: Result - Labs CBC & Chem 7: 02/28/19 05:35 02/28/19 09:20 Labs: Short CBC 02/27/19 02/28/19 Range/Units 13:51 05:35 WBC 4.2 L 5.0 (4.3-11.1) K/mcL Hgb 8.8 L 7.7 L (12.9-16.9) g/dL Hct 27.7 L 23.3 L (37.5-50.1) % Plt Count 99 L 88 L (140-400) K/mcL Neutrophils # 2.8 (1.6-8.9) K/mcL BMP 02/28/19 09:20 Sodium 138 Potassium 4.1 Chloride 101 Carbon Dioxide 29 BUN 30 H Creatinine 5.53 H Glucose 87 Calcium 7.9 L - ABG Interpretation ABG results: PT/INR, D-dimer PT 11.8 Seconds (9.4-12.1) 02/25/19 17:34 - Impressions Impressions Chest X-Ray 02/28/19 08:25 IMPRESSION: 1. Persistent dense retrocardiac opacity with pleural effusion. 2. Stable right lung airspace opacities. D/ / 02/28/2019 08:44:16 Yadira Rm MD / earnold Interpreting Provider: Yadira Rm MD Consult Discharge Plan - Plan [facility]errals: [facility] [Primary Care Provider] - (1) Pneumonia Qualifiers: Pneumonia type: due to unspecified organism Laterality: bilateral Lung location: unspecified part of lung Qualified Code(s): J18.9 - Pneumonia, unspecified organism (5) Renal cell carcinoma Qualifiers: Laterality: right Qualified Code(s): C64.1 - Malignant neoplasm of right kidney, except renal pelvis (7) Hypertension Qualifiers: Hypertension type: essential hypertension Qualified Code(s): I10 - Essential (primary) hypertension (9) Sepsis Qualifiers: Sepsis type: sepsis due to unspecified organism Sepsis acute organ dysfunction status: with acute organ dysfunction Severe sepsis acute organ dysfunction type: acute respiratory failure Acute respiratory failure type: with hypoxia Severe sepsis shock status: without septic shock Qualified Code(s): A41.9 - Sepsis, unspecified organism; R65.20 - Severe sepsis without septic shock; J96.01 - Acute respiratory failure with hypoxia
--- NOTE | 2019-02-28 13:35 | Nephrology Progress Note ---
Date of Encounter: 02/28/19 Time of Encounter: 13:28 - Assessment and Plan (1) ESRD (end stage renal disease) on dialysis Current Visit: Yes Status: Acute Current regimen is MWF at [facility]. HD in progress for today, tolerating well. Will increase the HD time to 3. 5 hours tomorrow to manage fluid status and optimize lung function. Pt did express wanting to possibly switch outpatient HD units and or providers, informed Idalia in executive secretary social welfare of his request. Renal diet Renal vitamins Strict I/O Avoid nephrotoxins and renal dose all medications. Will order additional UF or HD as needed. (2) Acute on chronic respiratory failure with hypoxia Current Visit: Yes Status: Acute Plan for IR to do thoracentesis per primary team. 1500 cc removed per IR note. Increased HD time tomorrow. (3) Pleural effusion Current Visit: Yes Status: Resolved Plan for IR completed thoracentesis 02/26/19. (4) Hypertension Current Visit: Yes Status: Chronic Stable, titrate medications accordingly. Qualifiers: Hypertension type: essential hypertension Qualified Code(s): I10 - Essential (primary) hypertension (5) Anemia in chronic kidney disease (CKD) Current Visit: No Status: Acute Hgb is 7.7, stable. not yet at goal. Aranesp ordered. Qualifiers: Qualified Code(s): N18.9 - Chronic kidney disease, unspecified; D63.1 - Anemia in chronic kidney disease Subjective Principal diagnosis: difficulty in breathing Interval history: Pt seen and examined is resting comfortably. Pt c/o of fatigue yesterday, so I did let him sleep through exam. Spoke with son and Dr. Spring at bedside. Objective - Vital Signs Vital signs: Vital Signs Temp Pulse Resp BP Pulse Ox 02/28/19 10:56 100.2 F H 87 16 103/51 89 02/28/19 07:26 16 91 02/28/19 06:49 99.8 F H 88 15 174/68 90 02/28/19 03:37 99.2 F 80 18 150/61 90 02/27/19 23:13 99.4 F 83 16 132/58 93 02/27/19 19:29 103/48 02/27/19 19:11 97.7 F 79 16 99/41 92 02/27/19 16:08 99.3 F 70 16 102/49 88 Intake and Output 02/27/19 02/28/19 02/28/19 23:59 07:59 15:59 Intake Total 100 / 910 0 / 210 210 / 210 Balance 100 / -2690 0 / 210 210 / 210 Intake: IV Fluids 100 / 310 210 / 210 Zosyn 3.375 GM In 0.9 % Sodium 100 / 200 100 / 100 Chloride (Mini-Bag +) 100 ML @ 25 mls/hr IVPB Q12HR [facility] Rx#: [id number] Ferrlecit 125 MG In 0.9 % 110 / 110 Sodium Chloride 100 ML @ 110 mls/hr IVPB DAILY [facility] Rx#: [id number] Oral 0 / 0 Other: Weight 77.9 kg Patient Weight 02/28/19 23:59 Weight 77.9 kg - General Appearance General appearance: Present: well-developed, well-nourished EENT: Present: ATNC, hearing intact, vision intact Neck: Present: supple Respiratory: Present: clear Additional Comments: Diminished in the bases. Cardiology: Present: edema (Trace bilat lower extemity edema.), normal S1, normal S2 Dialysis Vascular Access: Arteriovenous Fistula thrill: Yes bruit: Yes Gastrointestinal: Present: normoactive bowel sounds, no tenderness, no guarding Integumentary: Present: no rash, warm and dry Neurologic: Present: alert and oriented x3 Musculoskeletal: Present: no deformities, no erythema Psychiatric: Present: mood/affect appropriate, cooperative - Lab 02/28/19 05:35 02/28/19 09:20 Most recent lab results 02/28/19 09:20 Calcium 7.9 L Consult Discharge Plan - Plan [facility]errals: [facility] [Primary Care Provider] -
--- NOTE | 2019-02-28 14:19 | Electrocardiograph Report ---
[place] [id number] Test Date: 2019-02-26 Pat Name: Branden Laurent Department: 112 Room: 2A Gender: M Account Planner: : 1940 Requested By: Garfield Spring Order Number: [id number] Reading MD: Juliocesar Amaya Measurements Intervals [place] Rate: 78 P: 37 [place]: 157 QRS: -72 QRSD: 106 T: 74 QT: 428 QTc: 462 Interpretive Statements SINUS RHYTHM MARKED LEFT AXIS DEVIATION VOLTAGE CRITERIA FOR LVH NONSPECIFIC T-WAVE ABNORMALITY PROLONGED QT INTERVAL Electronically Signed On 02-28-2019 14:18:31 EDT by Juliocesar Amaya
--- NOTE | 2019-02-28 16:59 | Oncology Inp Progress Note ---
Date of Encounter: 02/28/19 Time of Encounter: 14:30 (1) Pancytopenia Current Visit: Yes Status: Chronic Assessment and plan: Duration is unclear. This has occurred in the setting of active pneumonia. This may be related to such. Certainly underlying bone marrow malignancy such as MDS is a possibility. Evaluation is currently underway. Patient has reviewed more intensive workup including bone marrow biopsy. He has received IV iron nor receive erythropoietin with dialysis. As of now, he would agree with transfusion support if needed. Would maintain hemoglobin 7 or above. No need for platelet transfusion at the current time. White blood cell count is improving. (2) Sepsis Current Visit: Yes Status: Acute Assessment and plan: Clinically improving. Continue supportive measures to the hospitalist team. Qualifiers: Sepsis type: sepsis due to unspecified organism Sepsis acute organ dysf unction status: with acute organ dysfunction Severe sepsis acute organ dy sfunction type: acute respiratory failure Acute respiratory failure type: with hypoxia Severe sepsis shock status: without septic shock Qualified Code(s): A41.9 - Sepsis, unspecified organism; R65.20 - Severe sepsis without septic shock; J96.01 - Acute respiratory failure with hypoxia (3) History of deep venous thrombosis (DVT) of distal vein of right lower extremity Current Visit: Yes Status: Acute Assessment and plan: He has refused therapeutic and coagulation. Oncology: Subj Interval history: Mr. Laurent feels okay. He does not recall talking with me yesterday. He denies any fever, chill or symptom of infection. Remains very fatigued and tired. No headache, blurred double vision. Has a bleeding symptoms of epistaxis, hemoptysis or hematemesis. - Constitutional General appearance: average body habitus, cooperative, severe distress - Head Head exam: Present: atraumatic, normal inspection, normocephalic - Eye Eye exam: Present: normal appearance, conjuntiva pink, sclera anicteric - ENT ENT exam: Present: mucous membranes moist, normal exam, normal oropharynx - Neck Neck exam: Present: full ROM, normal inspection - Respiratory Respiratory exam: Present: decreased breath sounds - Cardiovascular Cardiovascular exam: Present: RRR - GI/Abdominal GI/Abdominal exam: Present: normal bowel sounds, soft - Extremities Exam Extremities exam: Present: normal inspection, pedal edema - Neurological Exam Neurological exam: Present: alert, CN II-XII intact, oriented X3, no focal deficits Oncology: Obj Data - Labs CBC & Chem 7: 02/28/19 05:35 02/28/19 09:20 Consult Discharge Plan - Plan [facility]errals: [facility] [Primary Care Provider] - Inpatient Charges Provider: Dr. Justus Stiles Follow up - Inpatient: [id number]
[2019-03-01] MEDS: Piperacillin/Tazobactam 3.375 GM in 0.9 % Sodium Chloride Mini Bag 100 ML IVPB SCH ×2 (05:42→18:34)
[2019-03-01] MEDS: Tiotropium 18 MCG inhalation IH SCH (07:15)
[2019-03-01 07:40] LABS: Basophils % 0.2 %
[2019-03-01 07:42] LABS: Eosinophils # 0.1 K/mcL (0.0-0.6); Eosinophils % 2.5 %; Hematocrit 22.9 % (37.5-50.1); Hemoglobin 7.4 g/dL (12.9-16.9); Immature Granulocytes % 0.6 % (0-4); Immature Platelets 17.2 % (1.1-6.1); Lymphocytes # 0.9 K/mcL (0.6-4.6); Lymphocytes % 18.9 %; Mean Corpuscular HGB Conc 32.3 g/dL (31.6-35.5); Mean Corpuscular Hemoglobin 36.5 pg (28.0-33.3); Mean Corpuscular Volume 112.8 fL (83.0-100.0); Mean Platelet Volume 13.5 fL (9.4-12.4); Monocytes # 0.5 K/mcL (0.0-1.3); Neutrophils # 3.2 K/mcL (1.6-8.9); Red Blood Count 2.03 M/mcL (4.19-5.50); Segmented Neutrophils % 67.8 %; White Blood Count 4.7 K/mcL (4.3-11.1)
[2019-03-01 07:44] LABS: Platelet Count 83 K/mcL (140-400)
[2019-03-01 07:47] LABS: Macrocytosis Present (Not Present)
[2019-03-01 07:54] LABS: Calcium 8.5 mg/dL (8.6-10.3); Potassium 4.3 mEq/L (3.5-5.1)
[2019-03-01] MEDS: *HR* OxyCODONE Immed Rel 5 MG TABLET PO PRN ×2 (08:03→23:53)
[2019-03-01] MEDS: Lisinopril 20 MG TABLET PO SCH (08:03)
[2019-03-01] MEDS: Aspirin Enteric Coated 81 MG Tablet PO SCH (08:04)
[2019-03-01] MEDS: Sennosides/Docusate Sodium TABLET PO SCH (08:04)
[2019-03-01] MEDS: Furosemide 40 MG TABLET PO SCH (08:04)
[2019-03-01] MEDS: NIFEdipine XL (24 HR) 30 MG TAB.ER.24 PO SCH (08:04)
[2019-03-01] MEDS: Isosorbide MONOnitrate (24 HR) 30 MG TAB.ER.24H PO SCH (08:04)
--- NOTE | 2019-03-01 10:49 | Internal Med Progress Note ---
Hospitalist Progress Note - Encounter Date of Encounter: 03/01/19 Time of Encounter: 08:40 - Subjective Interval History: Patient was seen this morning. He has no chest pain or shortness of breath. He had good night sleep. - Exam Vitals: Temp Pulse Resp BP Pulse Ox 98.2 F 86 18 176/71 88 03/01/19 07:13 03/01/19 07:13 03/01/19 07:18 03/01/19 07:13 03/01/19 08:12 Exam: General: Alert and oriented 3, no distress HEENT: No erythema of posterior pharynx. No exudates. Lymphatics: No mandibular or cervical lymphadenopathy Cardiovascular: RRR. No murmurs. No chest wall tenderness. Lungs: Bilateral crackles. Abdomen: Non-tender. No rebound or gaurding. Nl bowel sounds. Extremities: . 2+ pulses radial and pedal pulses. Right upper extremity AV fistula with bruit. Skin: No rahses, abrasions, or contusions. Nl cap refill. Psych: Nl attention. A&Ox3 Neuro: quarantine officer II-XII intact. 5/5 strength. Skin; multiple bruises scattered all over the body - Assessment and Plan (1) Pneumonia Current Visit: Yes Status: Acute (2) Pleural effusion Current Visit: Yes Status: Resolved (3) Acute on chronic respiratory failure with hypoxia Current Visit: Yes Status: Acute (4) ESRD (end stage renal disease) Current Visit: No Status: Acute (5) Renal cell carcinoma Current Visit: No Status: Resolved (6) Hx of deep venous thrombosis Current Visit: Yes Status: Acute (7) Hypertension Current Visit: Yes Status: Chronic (8) Pancytopenia Current Visit: Yes Status: Chronic (9) Sepsis Current Visit: Yes Status: Resolved - Summary of Assessment and Plan Summary of Assessment and Plan: 78 years old male with history of RCC status post nephrectomy, end-stage renal disease on HD, DVT not on anticoagulation, COPD not on oxygen, essential hypertension [facility]. Pneumonia: CT with LLL,LILIANA,RLL,RUL consolidation. leukopenia resolved, afebrile, hemodynamically stable. Continue renally dosed Zosyn 09/16. Streptococcus and Legionella antigens are -. Blood cultures growing S. salivarius in 06/13. Follow cultures are -. Sepsis: meet 2/4, management as per above. Pleural effusion:likely due to HFpEF. Moderate on the left side, transudative, had 1.5 L removed by IR, follow-up x-ray with no pneumothorax and a clearing of pleural effusion, fluid cultures are pending. Echo: EF 60-65%, LVH, moderate DD. Acute on chronic decompensated HFpEF: Spoke with nephrology service about increasing his dialysis time as 3 hours one be enough and his pleural effusion with recurs COPD: Continue home dose inhalers. Acute hypoxic respiratory failure: 2/2 above, currently on 2L. CTA is - for PE. Wean off O2, on 2l. HTN: controlled, continue nifedipine 90 mg, Coreg and lisinopril. Pancytopenia: likely from sepsis OR MDS. Check folic acid, TSH, B12 are normal. iron profile is low, on day 3/8 Iron infusion. Check CBC. End-stage renal disease on HD MWF: Consult nephrology, will increase HD time to 3.5 hours. Prolonged QTc: repeat EKG with resolution, continue telemetry bed. DVT: In the right lower extremity, diagnosed a few months ago and patient re fused therapy due to easy bleeding. DVT ppx: SCD. - Time Spent with Patient Total time spent is greater than 50% in coordination of care (as documented) at patient's floor/unit and/or counseling patient: Greater than 35 minutes Plan of Care Discussed with: patient Internal Medicine: Result - Labs CBC & Chem 7: 03/01/19 06:53 03/01/19 06:53 Labs: Short CBC 03/01/19 Range/Units 06:53 WBC 4.7 (4.3-11.1) K/mcL Hgb 7.4 L (12.9-16.9) g/dL Hct 22.9 L (37.5-50.1) % Plt Count 83 L (140-400) K/mcL Neutrophils # 3.2 (1.6-8.9) K/mcL BMP 03/01/19 06:53 Sodium 136 Potassium 4.3 Chloride 99 Carbon Dioxide 27 BUN 44 H Creatinine 7.31 H Glucose 87 Calcium 8.5 L - ABG Interpretation ABG results: PT/INR, D-dimer PT 11.8 Seconds (9.4-12.1) 02/25/19 17:34 - Impressions Impressions Chest X-Ray 02/28/19 08:25 IMPRESSION: 1. Persistent dense retrocardiac opacity with pleural effusion. 2. Stable right lung airspace opacities. D/ / 02/28/2019 08:44:16 Yadira Rm MD / earnold Interpreting Provider: Yadira Rm MD Consult Discharge Plan - Plan [facility]errals: [facility] [Primary Care Provider] - (1) Pneumonia Qualifiers: Pneumonia type: due to unspecified organism Laterality: bilateral Lung location: unspecified part of lung Qualified Code(s): J18.9 - Pneumonia, unspecified organism (5) Renal cell carcinoma Qualifiers: Laterality: right Qualified Code(s): C64.1 - Malignant neoplasm of right kidney, except renal pelvis (7) Hypertension Qualifiers: Hypertension type: essential hypertension Qualified Code(s): I10 - Essential (primary) hypertension (9) Sepsis Qualifiers: Sepsis type: sepsis due to unspecified organism Sepsis acute organ dysfunction status: with acute organ dysfunction Severe sepsis acute organ dysfunction type: acute respiratory failure Acute respiratory failure type: with hypoxia Severe sepsis shock status: without septic shock Qualified Code(s): A41.9 - Sepsis, unspecified organism; R65.20 - Severe sepsis without septic shock; J96.01 - Acute respiratory failure with hypoxia
[2019-03-01] MEDS ORDERED: 0.9 % Sodium Chloride 1,000 ML PRIME SCH (11:00)
[2019-03-01] MEDS ORDERED: 0.9 % Sodium Chloride 250 ML IVC PRN (11:00)
[2019-03-01] MEDS: Sodium Ferric Gluconat/Sucrose 125 MG in 0.9 % Sodium Chloride 100 ML IVPB SCH (11:23)
--- NOTE | 2019-03-01 12:46 | Nephrology Progress Note ---
Date of Encounter: 03/01/19 Time of Encounter: 12:45 - Assessment and Plan (1) ESRD (end stage renal disease) on dialysis Current Visit: Yes Status: Acute Current regimen is MWF at [facility]. HD increased to 3.5 hours today. Pt did express wanting to possibly switch outpatient HD units and or providers, informed Idalia in social media marketing analyst of his request. Renal diet Renal vitamins Strict I/O Avoid nephrotoxins and renal dose all medications. Will order additional UF or HD as needed. (2) Acute on chronic respiratory failure with hypoxia Current Visit: Yes Status: Acute Plan for IR to do thoracentesis per primary team. 1500 cc removed per IR note. Increased HD time today. (3) Pleural effusion Current Visit: Yes Status: Resolved IR completed thoracentesis 02/26/19. (4) Hypertension Current Visit: Yes Status: Chronic Stable, titrate medications accordingly. Qualifiers: Hypertension type: essential hypertension Qualified Code(s): I10 - Essential (primary) hypertension (5) Anemia in chronic kidney disease (CKD) Current Visit: No Status: Acute Hgb is 7.4 stable. not yet at goal. Aranesp ordered. Qualifiers: Qualified Code(s): N18.9 - Chronic kidney disease, unspecified; D63.1 - Anemia in chronic kidney disease Subjective Principal diagnosis: difficulty in breathing Interval history: Pt seen and examined is resting comfortably. Pt appears very fatigued. He slept through exam, no family at bedside. Objective - Vital Signs Vital signs: Vital Signs Temp Pulse Resp BP Pulse Ox 03/01/19 10:56 98.7 F 82 17 119/61 92 03/01/19 08:12 88 03/01/19 07:18 18 93 03/01/19 07:13 98.2 F 86 16 176/71 94 03/01/19 03:38 98.5 F 83 16 162/64 92 03/01/19 01:15 98.4 F 84 16 159/64 93 02/28/19 19:25 98.2 F 74 14 123/48 90 02/28/19 15:44 98.1 F 75 16 109/47 94 Intake and Output 02/28/19 03/01/19 03/01/19 23:59 07:59 15:59 Intake Total 100 / 310 0 / 340 340 / 340 Output Total 0 / 0 350 / 350 Balance 100 / 310 -350 / -10 340 / -10 Intake: IV Fluids 100 / 310 100 / 100 Zosyn 3.375 GM In 0.9 % Sodium 100 / 200 100 / 100 Chloride (Mini-Bag +) 100 ML @ 25 mls/hr IVPB Q12HR [facility]BR[facility] Rx#: [id number] Oral 0 / 0 0 / 240 240 / 240 Output: Urine 0 / 0 350 / 350 Other: Meal Breakfast Percent of Meal Consumed 90% # Voids 1 Weight 76.9 kg Patient Weight 03/01/19 23:59 Weight 76.9 kg - General Appearance General appearance: Present: well-developed, well-nourished Exam: fatigued EENT: Present: ATNC, hearing intact, vision intact Neck: Present: supple Respiratory: Present: clear Cardiology: Present: edema (Trace edema noted to all four extremities.), normal S1, normal S2 Dialysis Vascular Access: Arteriovenous Fistula thrill: Yes bruit: Yes Gastrointestinal: Present: normoactive bowel sounds, no tenderness, no guarding Integumentary: Present: no rash, warm and dry Neurologic: Present: alert and oriented x3 Musculoskeletal: Present: no deformities, no erythema Psychiatric: Present: mood/affect appropriate, cooperative - Lab 03/01/19 06:53 03/01/19 06:53 Most recent lab results 03/01/19 06:53 Calcium 8.5 L Consult Discharge Plan - Plan [facility]errals: [facility] [Primary Care Provider] - 03/12/19 2:30 pm (Inez follow up as schedule...)
[2019-03-01] MEDS ORDERED: Albumin 25% 12.5gm/50mL 25.0 GM/100 ML IV.SOLN ONE (16:01)
[2019-03-01] MEDS ORDERED: Albumin 25% 25gram/100mL 25 GM/100 ML IV.SOLN IVPB STA (16:09)
[2019-03-01] MEDS ORDERED: 0.9 % Sodium Chloride Mini Bag 100 ML ONE (18:18)
[2019-03-01] MEDS: MOM Conc 10 ML UD.LIQ PO SCH (18:36)
[2019-03-02] MEDS: Piperacillin/Tazobactam 3.375 GM in 0.9 % Sodium Chloride Mini Bag 100 ML IVPB SCH (05:58)
[2019-03-02 07:50] VITALS: BP 160/71
[2019-03-02] MEDS: Tiotropium 18 MCG inhalation IH SCH (08:05)
[2019-03-02] MEDS: Aspirin Enteric Coated 81 MG Tablet PO SCH (08:31)
[2019-03-02] MEDS: NIFEdipine XL (24 HR) 30 MG TAB.ER.24 PO SCH (08:31)
[2019-03-02] MEDS: Furosemide 40 MG TABLET PO SCH (08:31)
[2019-03-02] MEDS: MOM Conc 10 ML UD.LIQ PO SCH (08:32)
[2019-03-02] MEDS: Sodium Ferric Gluconat/Sucrose 125 MG in 0.9 % Sodium Chloride 100 ML IVPB SCH (08:32)
[2019-03-02] MEDS: Lisinopril 20 MG TABLET PO SCH (08:32)
[2019-03-02] MEDS: Isosorbide MONOnitrate (24 HR) 30 MG TAB.ER.24H PO SCH (08:32)
[2019-03-02] MEDS: Sennosides/Docusate Sodium TABLET PO SCH (08:32)
--- NOTE | 2019-03-02 10:45 | Discharge Summary ---
- NOTES TO OUTPATIENT PROVIDER Notes to Outpatient Provider: Patient was admitted with pneumonia. He was treated with IV antibiotics. His oxygen requirement dropped down to 01 liters intermittently. He was also noted to have iron deficiency anemia and was given iron infusion. He would be discharged on oral antibiotics. Orders not resulted at time of discharge: Pending orders 02/25/19 13:34 Culture,Blood [BC] Stat 02/25/19 18:39 Culture,Anaerobic [RM] Routine 02/26/19 07:28 Culture,Sputum with Gram Stain [RM] Routine 02/26/19 07:50 Culture,Blood [BC] Stat 02/27/19 13:51 [place] Lambda Qnt FLC w Ratio Routine 02/27/19 18:17 CALR Exon 9 Mutation Routine MPL codon 515 Mut-PeripheralBl Routine 02/28/19 05:35 BCR-ABL1t(9;22)Diag,Rflx Quant Routine JAK2 (V617F) Mutation by PCR AM 0400 JAK2 EXON 12 Mut non-V617F AM 0400 Date of Encounter: 03/02/19 Time of Encounter: 09:00 - Discharge Diagnosis (1) Pneumonia Priority: Primary Status: Acute Qualifiers: Pneumonia type: due to unspecified organism Laterality: bilateral Lung location: upper lobe of lung Qualified Code(s): J18.1 - Lobar pneumonia, unspecified organism (2) Pleural effusion Priority: Secondary Status: Resolved (3) Acute on chronic respiratory failure with hypoxia Priority: Secondary Status: Resolved (4) ESRD (end stage renal disease) Priority: Secondary Status: Chronic (5) Renal cell carcinoma Priority: Secondary Status: Chronic Qualifiers: Laterality: right Qualified Code(s): C64.1 - Malignant neoplasm of right kidney, except renal pelvis (6) Hx of deep venous thrombosis Priority: Secondary Status: Chronic (7) Hypertension Priority: Secondary Status: Chronic Qualifiers: Hypertension type: essential hypertension Qualified Code(s): I10 - Essential (primary) hypertension (8) Pancytopenia Priority: Secondary Status: Chronic (9) Sepsis Priority: Secondary Status: Resolved Qualifiers: Sepsis type: sepsis due to unspecified organism Sepsis acute organ dysfunction status: with acute organ dysfunction Severe sepsis acute organ dysfunction type: acute respiratory failure Acute respiratory failure type: with hypoxia Severe sepsis shock status: without septic shock Qualified Code(s): A41.9 - Sepsis, unspecified organism; R65.20 - Severe sepsis without septic shock; J96.01 - Acute respiratory failure with hypoxia Hospital course: 78 years old male with history of RCC status post nephrectomy, end-stage renal disease on HD, DVT not on anticoagulation, COPD not on oxygen, essential hypertension who was managed for sepsis and acute hypoxic respiratory failure due to multifocal pneumonia. Blood cultures grew S. salivarius sensitive to Augmentin. Patient's oxygen requirement went down before discharge to 01 liters. He also had left-sided pleural effusion for which he had thoracocen tesis revealing transudative effusion likely from under dialyzing him. He also had pancytopenia and oncology was consulted. Bone marrow biopsy was recommended however patient declined. He received IV iron infusion for his iron deficiency anemia. Today, patient is hemodynamically stable, asymptomatic. He will be discharged to rehabilitation in stable condition. Discharge discussed with: patient - Time Spent with Patient Total time spent providing and/or coordinating discharge services: 35 minutes - Discharge Medications Prescriptions: New Amoxicillin/Clavulanate [Augmentin] 500 mg PO DAILY #3 tablet Carvedilol [Coreg] 6.25 mg PO BIDWM #60 tablet Ferrous Sulfate 325 mg PO Q48H #15 tablet Cyclobenzaprine [Flexeril] 5 mg PO BID PRN #10 tablet PRN Reason: Muscle Spasm NIFEdipine XL (24 HR) [Procardia XL] 90 mg PO DAILY #30 tab.er.24 OxyCODONE Immed Rel [Roxicodone 5 MG] 5 mg PO Q8HR PRN 5 Days #15 tablet PRN Reason: Pain Sennosides/Docusate Sodium [Senna Plus] 1 each PO DAILY #30 tablet Continued Sevelamer [Renvela] 3,200 mg PO TIDWM Terazosin [Hytrin] 1 mg PO HS Omeprazole [PriLOSEC] 20 mg PO BID Albuterol Sulfate [Proventil Inhaler] 2 puff IH QID PRN PRN Reason: Shortness Of Breath Allopurinol [Zyloprim 100 MG] 100 mg PO DAILY Sodium Bicarbonate 650 mg PO BID Furosemide [Lasix] 40 mg PO DAILY Albuterol Neb [Proventil Neb] 2.5 mg IH QID PRN PRN Reason: BREATHING Aspirin [Lo-Dose Aspirin EC] 81 mg PO DAILY Atorvastatin [Lipitor] 20 mg PO HS Folic Acid/Vit B Complex and C [Dialyvite Tablet] 1 tab PO DAILY Isosorbide MONOnitrate [Isosorbide Mononitrate ER] 30 mg PO DAILY Polyvinyl Alcohol [Artificial Tears] 1 drop OP QID PRN PRN Reason: Dry Eyes Tiotropium [Spiriva] 18 mcg IH 0700 Changed Lisinopril [Zestril] 20 mg PO DAILY #0 Discontinued Metoprolol [Lopressor] 50 mg PO BID Azithromycin [Azithromycin 6-Tab Pack] 250 mg PO PER PKG DI NIFEdipine [Nifedipine ER] 60 mg PO DAILY Home Medications: Albuterol Sulfate [Proventil Inhaler] 2 puff IH QID PRN 08/05/16 [History] Allopurinol [Zyloprim 100 MG] 100 mg PO DAILY 08/05/16 [History] Furosemide [Lasix] 40 mg PO DAILY 08/05/16 [History] Omeprazole [PriLOSEC] 20 mg PO BID 08/05/16 [History] Sevelamer [Renvela] 3,200 mg PO TIDWM 08/05/16 [History] Sodium Bicarbonate 650 mg PO BID 08/05/16 [History] Terazosin [Hytrin] 1 mg PO HS 08/05/16 [History] Albuterol Neb [Proventil Neb] 2.5 mg IH QID PRN 02/25/19 [History] Aspirin [Lo-Dose Aspirin EC] 81 mg PO DAILY 02/25/19 [History] Atorvastatin [Lipitor] 20 mg PO HS 02/25/19 [History] Folic Acid/Vit B Complex and C [Dialyvite Tablet] 1 tab PO DAILY 02/25/19 [History] Isosorbide MONOnitrate [Isosorbide Mononitrate ER] 30 mg PO DAILY 02/25/19 [History] Polyvinyl Alcohol [Artificial Tears] 1 drop OP QID PRN 02/25/19 [History] Tiotropium [Spiriva] 18 mcg IH 0700 02/25/19 [History] Amoxicillin/Clavulanate [Augmentin] 500 mg PO DAILY #3 tablet 03/02/19 [Rx] Carvedilol [Coreg] 6.25 mg PO BIDWM #60 tablet 03/02/19 [Rx] Cyclobenzaprine [Flexeril] 5 mg PO BID PRN #10 tablet 03/02/19 [Rx] Ferrous Sulfate 325 mg PO Q48H #15 tablet 03/02/19 [Rx] Lisinopril [Zestril] 20 mg PO DAILY #0 03/02/19 [Rx] NIFEdipine XL (24 HR) [Procardia XL] 90 mg PO DAILY #30 tab.er.24 03/02/19 [Rx] OxyCODONE Immed Rel [Roxicodone 5 MG] 5 mg PO Q8HR PRN 5 Days #15 tablet 03/02/19 [Rx] Sennosides/Docusate Sodium [Senna Plus] 1 each PO DAILY #30 tablet 03/02/19 [Rx] Allergies/Adverse Reactions: Allergy/AdvReac Type Severity Reaction Status Date / Time naproxen Allergy Itching Verified 01/27/15 17:36 Date of admission: 02/26/19 17:32 Primary care physician: PCP [facility] Consults: 02/26/19 06:48 Consult to [facility] [CONS] Routine Reason for SW Consult: To obtain Code status paperwork from [facility]. 02/26/19 07:29 Consult to Nephrology [CONS] Routine Consulting Provider: Kidney Mary Ann/ANDREI/TOMEKA/IRMA Reason for Consult: ESRD on HD Call Completed: No 02/26/19 11:58 Consult to Palliative Care [CONS] Routine Comment: Consulting Provider: Palliative Care Mary Ann Reason for Consult: discuss goals of care Call Completed: No 02/27/19 07:09 Consult to Oncology Hematology [CONS] Routine Consulting Provider: Marc Stiles Reason for Consult: pancytopenia Call Completed: No 02/27/19 07:30 Consult to Dialysis [CONS] ONCE 02/28/19 09:55 Consult to Occupational Therapy [CONS] Routine Comment: Evaluate, develop and implement POC Reason for Consult: evaluate the need for skilled placement Does patient have active BEDREST order?: No Is patient medically & hemodynamically stable?: Yes Consult to Physical Therapy [CONS] Routine Comment: Evaluate, develop and implement POC Reason for Consult: evaluate the need for skilled placement Does patient have active BEDREST order?: No Is patient medically & hemodynamically stable?: Yes 03/01/19 11:00 Consult to Dialysis [CONS] ONCE - Constitutional Vitals: Temp Pulse Resp BP Pulse Ox 98.4 F 87 18 160/71 91 03/02/19 07:49 03/02/19 07:49 03/02/19 08:08 03/02/19 07:49 03/02/19 08:08 Exam: General: Alert and oriented 3, no distress HEENT: No erythema of posterior pharynx. No exudates. Lymphatics: No mandibular or cervical lymphadenopathy Cardiovascular: RRR. No murmurs. No chest wall tenderness. Lungs: Clear to auscultation Abdomen: Non-tender. No rebound or gaurding. Nl bowel sounds. Extremities: . 2+ pulses radial and pedal pulses. Right upper extremity AV fistula with bruit. Skin: No rahses, abrasions, or contusions. Nl cap refill. Psych: Nl attention. A&Ox3 Neuro: brim cutter II-XII intact. 5/5 strength. Skin; multiple bruises scattered all over the body - Patient Status Disposition: Transfer SNF Condition: Good Functional capacity at discharge: uses cane/walker Overall status at discharge: patient is back to baseline - Discharge Instructions Instructions: Pleural Effusion (DC), Pneumonia (DC) [facility] Provider[facility] - 03/12/19 2:30 pm ([place] follow up as schedule. ..) - Diet and Activity Activity: as per physical therapy Diet: low salt diet (Renal)
--- NOTE | 2019-03-02 11:02 | Physician Discharge Referral ---
ExtendedCare Referral Info Transfer To: SNF Provider in Charge after Transfer: PCP Institutional Level of Care: Skilled - Diagnosis (1) Pneumonia Priority: Primary Status: Resolved (2) Pleural effusion Priority: Secondary Status: Resolved (3) Acute on chronic respiratory failure with hypoxia Priority: Secondary Status: Resolved (4) ESRD (end stage renal disease) Priority: Secondary Status: Chronic (5) Renal cell carcinoma Priority: Secondary Status: Chronic (6) Hx of deep venous thrombosis Priority: Secondary Status: Chronic (7) Hypertension Priority: Secondary Status: Chronic (8) Pancytopenia Priority: Secondary Status: Chronic (9) Sepsis Priority: Secondary Status: Resolved Prognosis: Good - Transfer Medications Prescriptions: Amoxicillin/Clavulanate [Augmentin] 500 mg PO DAILY #3 tablet Prescription Printed Carvedilol [Coreg] 6.25 mg PO BIDWM #60 tablet Prescription Printed Ferrous Sulfate 325 mg PO Q48H #15 tablet Prescription Printed Cyclobenzaprine [Flexeril] 5 mg PO BID PRN #10 tablet PRN Reason: Muscle Spasm Prescription Printed NIFEdipine XL (24 HR) [Procardia XL] 90 mg PO DAILY #30 tab.er.24 Prescription Printed OxyCODONE Immed Rel [Roxicodone 5 MG] 5 mg PO Q8HR PRN 5 Days #15 tablet PRN Reason: Pain Prescription Printed Sennosides/Docusate Sodium [Senna Plus] 1 each PO DAILY #30 tablet Prescription Printed Home Medications: Albuterol Sulfate [Proventil Inhaler] 2 puff IH QID PRN 08/05/16 [History] Allopurinol [Zyloprim 100 MG] 100 mg PO DAILY 08/05/16 [History] Furosemide [Lasix] 40 mg PO DAILY 08/05/16 [History] Omeprazole [PriLOSEC] 20 mg PO BID 08/05/16 [History] Sevelamer [Renvela] 3,200 mg PO TIDWM 08/05/16 [History] Sodium Bicarbonate 650 mg PO BID 08/05/16 [History] Terazosin [Hytrin] 1 mg PO HS 08/05/16 [History] Albuterol Neb [Proventil Neb] 2.5 mg IH QID PRN 02/25/19 [History] Aspirin [Lo-Dose Aspirin EC] 81 mg PO DAILY 02/25/19 [History] Atorvastatin [Lipitor] 20 mg PO HS 02/25/19 [History] Folic Acid/Vit B Complex and C [Dialyvite Tablet] 1 tab PO DAILY 02/25/19 [History] Isosorbide MONOnitrate [Isosorbide Mononitrate ER] 30 mg PO DAILY 02/25/19 [History] Polyvinyl Alcohol [Artificial Tears] 1 drop OP QID PRN 02/25/19 [History] Tiotropium [Spiriva] 18 mcg IH 0700 02/25/19 [History] Amoxicillin/Clavulanate [Augmentin] 500 mg PO DAILY #3 tablet 03/02/19 [Rx] Carvedilol [Coreg] 6.25 mg PO BIDWM #60 tablet 03/02/19 [Rx] Cyclobenzaprine [Flexeril] 5 mg PO BID PRN #10 tablet 03/02/19 [Rx] Ferrous Sulfate 325 mg PO Q48H #15 tablet 03/02/19 [Rx] Lisinopril [Zestril] 20 mg PO DAILY #0 03/02/19 [Rx] NIFEdipine XL (24 HR) [Procardia XL] 90 mg PO DAILY #30 tab.er.24 03/02/19 [Rx] OxyCODONE Immed Rel [Roxicodone 5 MG] 5 mg PO Q8HR PRN 5 Days #15 tablet 03/02/19 [Rx] Sennosides/Docusate Sodium [Senna Plus] 1 each PO DAILY #30 tablet 03/02/19 [Rx] Allergies/Adverse Reactions: Allergy/AdvReac Type Severity Reaction Status Date / Time naproxen Allergy Itching Verified 01/27/15 17:36 - Respiratory Orders Oxygen / L per min (1-2) Smoking Cessation: Smoking cessation has been advised. For more information, call the [place] Tobacco Quit Line at 3-655-PENC-NOW. - Advance Directives Code Status: DNR-Arrest/Don't Intubate - Mobility Orders Ambulate - Rehabiliation Orders Rehab Potential: Good Rehab Orders: Evaluation for Physical Therapy, Evaluation for Occupational T herapy - Diet Orders Renal CERTIFICATION: I certify that the transfer of the above named patient to an Extended Care Facility is necessary for the continuing treatment of the diagnosis listed. The above information is true and accurate reflection of patient's current condition. Confidential - Redisclosure prohibited without a patient's written consent.
--- NOTE | 2019-03-02 14:37 | Nephrology Progress Note ---
Date of Encounter: 03/02/19 Time of Encounter: 12:00 - Assessment and Plan (1) ESRD (end stage renal disease) on dialysis Status: Acute Current regimen is MWF at [facility]. s/p HD yesterday with no complications. Continue renal diet Continue renal vitamins Continue strict I/O Continue to avoid nephrotoxins and renal dose all medications. Ok to discharge from a renal standpoint (2) Acute on chronic respiratory failure with hypoxia Status: Resolved Resolved. s/p thoracentesis. (3) Pleural effusion Status: Resolved IR completed thoracentesis 02/26/19. (4) Hypertension Status: Chronic Stable, titrate medications accordingly. Qualifiers: Hypertension type: essential hypertension Qualified Code(s): I10 - Essential (primary) hypertension (5) Anemia in chronic kidney disease (CKD) Status: Acute Hgb is 7.4 stable. not yet at goal. Aranesp ordered. Qualifiers: Qualified Code(s): N18.9 - Chronic kidney disease, unspecified; D63.1 - Anemia in chronic kidney disease Subjective Principal diagnosis: difficulty in breathing Interval history: Pt seen and examined with family at bedside with no new complaints. Eager to be discharged today. s/p HD yesterday Objective - Vital Signs Vital signs: Vital Signs Temp Pulse Resp BP Pulse Ox 03/02/19 08:08 18 91 03/02/19 07:49 98.4 F 87 18 160/71 90 03/02/19 04:41 98.9 F 79 18 142/72 92 03/01/19 23:16 98.2 F 85 19 138/56 92 03/01/19 19:32 98.2 F 85 14 164/60 91 03/01/19 18:28 98.7 F 15 110/53 03/01/19 18:00 108/52 03/01/19 17:45 112/53 03/01/19 17:30 114/52 03/01/19 17:15 113/53 03/01/19 17:00 112/53 03/01/19 16:45 96/53 03/01/19 16:30 101/48 03/01/19 16:15 94/50 03/01/19 16:00 93/49 03/01/19 15:45 94/46 03/01/19 15:30 89/51 03/01/19 15:15 93/49 03/01/19 15:00 95/54 03/01/19 14:45 100/52 Intake and Output 03/01/19 03/02/19 03/02/19 23:59 07:59 15:59 Intake Total 0 / 950 100 / 135 35 / 135 Output Total 2500 / 2850 Balance -2500 / -1900 100 / 135 35 / 135 Intake: IV Fluids 100 / 135 35 / 135 Zosyn 3.375 GM In 0.9 % Sodium 100 / 135 35 / 135 Chloride (Mini-Bag +) 100 ML @ 25 mls/hr IVPB Q12HR AMBROSE Rx#: [id number] Oral 0 / 240 0 / 0 Output: Urine 0 / 350 Total Dialysis (HD) Output 2500 / 2500 Other: Stool Size Large Stool Consistency soft Stool Color Brown # Bowel Movements 1 Weight 77.1 kg Hemodialysis Net Fluid Removed 2000 (mL) Patient Weight 03/02/19 23:59 Weight 77.1 kg - General Appearance General appearance: Present: chronically ill (NAD) EENT: Present: ATNC, mucous membranes moist Neck: Present: no JVD, supple Respiratory: Present: clear Cardiology: Present: no edema, normal S1, normal S2 Dialysis Vascular Access: Arteriovenous Fistula thrill: Yes bruit: Yes Gastrointestinal: Present: no tenderness, no guarding Integumentary: Present: warm and dry Neurologic: Present: no focal deficit Musculoskeletal: Present: no deformities Psychiatric: Present: mood/affect appropriate, cooperative - Lab 03/01/19 06:53 03/01/19 06:53 Consult Discharge Plan - Plan Instructions: Pleural Effusion (DC), Pneumonia (DC) [facility]: [facility] [Primary Care Provider[facility] - 03/12/19 2:30 pm ([place] follow up as schedule...) Prescriptions: Amoxicillin/Clavulanate [Augmentin] 500 mg PO DAILY #3 tablet Prescription Printed Carvedilol [Coreg] 6.25 mg PO BIDWM #60 tablet Prescription Printed Ferrous Sulfate 325 mg PO Q48H #15 tablet Prescription Printed Cyclobenzaprine [Flexeril] 5 mg PO BID PRN #10 tablet PRN Reason: Muscle Spasm Prescription Printed NIFEdipine XL (24 HR) [Procardia XL] 90 mg PO DAILY #30 tab.er.24 Prescription Printed OxyCODONE Immed Rel [Roxicodone 5 MG] 5 mg PO Q8HR PRN 5 Days #15 tablet PRN Reason: Pain Prescription Printed Sennosides/Docusate Sodium [Senna Plus] 1 each PO DAILY #30 tablet Prescription Printed
[2019-03-02 23:07] LABS: Kappa Qnt Free Light Chains 20.5 mg/dL (0.33-1.94); Lambda Qnt Free Light Chains 13.4 mg/dL (0.57-2.63)
[2019-03-03 16:02] LABS: Alpha 2 Globulin (PEP) 0.79 g/dL (0.48-1.05); Beta Globulin (PEP) 0.56 g/dL (0.48-1.10)
[2019-03-04 06:41] LABS: IFE Reflexed IFE Done
[2019-03-04 06:42] LABS: Immunoglobulin A 168 mg/dL (68-408); Immunoglobulin G 696 mg/dL (768-1632); Immunoglobulin M 54 mg/dL (35-263)
[2019-03-04 11:44] LABS: BCR-ABL1 Specimen Source NOT SPECIFIED
[2019-03-04 18:02] LABS: JAK2 (V617F) Mutation by PCR NOT DETECTED
[2019-03-07 10:03] LABS: MPL codon 515 Mut-PeripheralBl NOT DETECTED
== END 2019-03-02 13:45 | DRG 871 ==
LOC: EMEROOARM 12:45 → 2ANU 12:45 → SUATTDRO 18:25 → 2ANU 18:58
PROVIDERS: ADMIT Internal Medicine; ATTEND Internal Medicine

== ENCOUNTER 2019-04-01 14:39 | Inpatient (IN) ==
[2019-04-01 15:57] LABS: Calcium 9.1 mg/dL (8.6-10.3); Potassium 6.3 mEq/L (3.5-5.1)
[2019-04-01 16:03] LABS: Basophils % 0.5 %; Hemoglobin 7.8 g/dL (12.9-16.9)
[2019-04-01 16:05] LABS: Eosinophils # 0.1 K/mcL (0.0-0.6); Eosinophils % 1.8 %; Hematocrit 22.2 % (37.5-50.1); Immature Granulocytes % 4.7 % (0-4); Lymphocytes % 25.2 %; Mean Corpuscular HGB Conc 35.1 g/dL (31.6-35.5); Mean Corpuscular Hemoglobin 37.7 pg (28.0-33.3); Mean Corpuscular Volume 107.2 fL (83.0-100.0); Mean Platelet Volume 14.1 fL (9.4-12.4); Monocytes # 0.3 K/mcL (0.0-1.3); Monocytes % 7.6 %; Neutrophils # 2.3 K/mcL (1.6-8.9); Nucleated Red Blood Cells 0.5 /100 WBC (0); Red Blood Count 2.07 M/mcL (4.19-5.50); Segmented Neutrophils % 60.2 %; White Blood Count 3.8 K/mcL (4.3-11.1)
[2019-04-01 16:13] LABS: Platelet Count 69 K/mcL (140-400)
[2019-04-01] MEDS ORDERED: *HR* Dextrose 50 % in Water (Syg) 50 ML SYRINGE IVP ONE (16:37)
[2019-04-01] MEDS ORDERED: Insulin Human Regular 10 UNIT in 0.9 % Sodium Chloride 10 ML IV ONE (16:37)
[2019-04-01] MEDS ORDERED: Calcium Gluconate 1gm/50mL 1 GM/50 ML BAG IVPB ONE (16:39)
[2019-04-01] MEDS ORDERED: 0.9 % Sodium Chloride 250 ML IVC PRN (17:01)
[2019-04-01] MEDS ORDERED: *HR* Dextrose 50 % in Water (Syg) 50 ML SYRINGE ONE (17:09)
[2019-04-01] MEDS ORDERED: 0.9 % Sodium Chloride 1,000 ML PRIME SCH (17:15)
[2019-04-01] MEDS ORDERED: Naloxone 0.4 MG/ML INJ IVP PRN (17:21)
[2019-04-01] MEDS ORDERED: Albuterol 2.5 MG/3 ML NEBULIZER IH PRN (17:25)
[2019-04-01] MEDS ORDERED: Ipratropium/Albuterol Neb 3 ML IH PRN (17:54)
[2019-04-01 23:01] LABS: Hepatitis B Surface Antibody < 3.10 mIU/mL
[2019-04-01 23:11] LABS: Hepatitis B Surface Antigen Nonreactive (Nonreactive)
[2019-04-02 06:50] LABS: Basophils % 0.6 %; Eosinophils # 0.1 K/mcL (0.0-0.6); Eosinophils % 2.7 %; Hematocrit 22.9 % (37.5-50.1); Hemoglobin 7.9 g/dL (12.9-16.9); Immature Granulocytes % 0.6 % (0-4); Lymphocytes % 28.1 %; Mean Corpuscular HGB Conc 34.5 g/dL (31.6-35.5); Mean Corpuscular Hemoglobin 37.1 pg (28.0-33.3); Mean Corpuscular Volume 107.5 fL (83.0-100.0); Mean Platelet Volume 13.8 fL (9.4-12.4); Monocytes # 0.4 K/mcL (0.0-1.3); Monocytes % 12.1 %; Neutrophils # 1.9 K/mcL (1.6-8.9); Red Blood Count 2.13 M/mcL (4.19-5.50); Red Cell Distribution Width 15.1 % (11.5-14.5); Segmented Neutrophils % 55.9 %; White Blood Count 3.4 K/mcL (4.3-11.1)
[2019-04-02 06:51] LABS: Platelet Count 88 K/mcL (140-400)
[2019-04-02] MEDS: NIFEdipine XL (24 HR) 30 MG TAB.ER.24 PO SCH (06:51)
[2019-04-02 06:52] LABS: Platelet Estimate Decreased (Normal)
[2019-04-02 07:11] LABS: Potassium 5.3 mEq/L (3.5-5.1)
[2019-04-02] MEDS ORDERED: Artificial Tears SOLN 15 ML BOTTLE BOTH EYES PRN (08:20)
[2019-04-02] MEDS: Lisinopril 20 MG TABLET PO SCH ×2 (09:45→21:03)
[2019-04-02] MEDS: Furosemide 40 MG TABLET PO SCH (09:45)
[2019-04-02] MEDS: Loratadine 10 MG TABLET PO SCH (09:45)
[2019-04-02] MEDS: Aspirin Enteric Coated 81 MG Tablet PO SCH (09:45)
[2019-04-02] MEDS: Isosorbide MONOnitrate (24 HR) 30 MG TAB.ER.24H PO SCH (09:45)
[2019-04-02] MEDS: Cholecalciferol (D-3) 1,000 UNIT (25MCG) TABLET PO SCH (09:45)
[2019-04-03 04:41] LABS: Basophils % 0.3 %; Immature Granulocytes % 0.5 % (0-4); White Blood Count 3.8 K/mcL (4.3-11.1)
[2019-04-03 04:43] LABS: Eosinophils # 0.1 K/mcL (0.0-0.6); Eosinophils % 2.9 %; Hematocrit 22.1 % (37.5-50.1); Hemoglobin 7.6 g/dL (12.9-16.9); Lymphocytes # 1.4 K/mcL (0.6-4.6); Lymphocytes % 37.9 %; Mean Corpuscular HGB Conc 34.4 g/dL (31.6-35.5); Mean Corpuscular Volume 110.5 fL (83.0-100.0); Monocytes # 0.4 K/mcL (0.0-1.3); Monocytes % 10.7 %; Neutrophils # 1.8 K/mcL (1.6-8.9); Segmented Neutrophils % 47.7 %
[2019-04-03 04:45] LABS: Platelet Count 69 K/mcL (140-400)
[2019-04-03 04:57] LABS: Potassium 4.7 mEq/L (3.5-5.1)
[2019-04-03 05:23] LABS: Macrocytosis Present (Not Present)
[2019-04-03 05:24] LABS: Platelet Estimate Decreased (Normal)
[2019-04-03] MEDS: Tiotropium 18 MCG inhalation IH SCH (07:20)
[2019-04-03] MEDS ORDERED: 0.9 % Sodium Chloride 250 ML IVC PRN (07:46)
[2019-04-03] MEDS: Aspirin Enteric Coated 81 MG Tablet PO SCH (09:54)
[2019-04-03] MEDS: Loratadine 10 MG TABLET PO SCH (09:55)
[2019-04-03] MEDS: Isosorbide MONOnitrate (24 HR) 30 MG TAB.ER.24H PO SCH (09:55)
[2019-04-03] MEDS: Furosemide 40 MG TABLET PO SCH (09:56)
[2019-04-03] MEDS: Cholecalciferol (D-3) 1,000 UNIT (25MCG) TABLET PO SCH (09:57)
[2019-04-03] MEDS ORDERED: *HR* HYDROcodone/Acet 10/325 mg TABLET PO PRN (12:44)
[2019-04-03] MEDS: NIFEdipine XL (24 HR) 30 MG TAB.ER.24 PO SCH (13:01)
[2019-04-03] MEDS: Lisinopril 20 MG TABLET PO SCH ×2 (13:01→19:48)
[2019-04-04 05:47] LABS: Basophils % 0.3 %; Immature Granulocytes % 0.3 % (0-4)
[2019-04-04 05:49] LABS: Eosinophils # 0.1 K/mcL (0.0-0.6); Eosinophils % 2.2 %; Hemoglobin 7.5 g/dL (12.9-16.9); Immature Platelets 18.1 % (1.1-6.1); Lymphocytes # 1.2 K/mcL (0.6-4.6); Lymphocytes % 37.3 %; Mean Corpuscular HGB Conc 34.1 g/dL (31.6-35.5); Mean Corpuscular Hemoglobin 36.8 pg (28.0-33.3); Mean Corpuscular Volume 107.8 fL (83.0-100.0); Mean Platelet Volume 12.4 fL (9.4-12.4); Monocytes # 0.4 K/mcL (0.0-1.3); Monocytes % 10.8 %; Neutrophils # 1.6 K/mcL (1.6-8.9); Red Blood Count 2.04 M/mcL (4.19-5.50); Red Cell Distribution Width 14.7 % (11.5-14.5); Segmented Neutrophils % 49.1 %; White Blood Count 3.2 K/mcL (4.3-11.1)
[2019-04-04 05:50] LABS: Platelet Count 69 K/mcL (140-400)
[2019-04-04 06:04] LABS: Calcium 9.2 mg/dL (8.6-10.3); Potassium 4.5 mEq/L (3.5-5.1)
[2019-04-04] MEDS: Tiotropium 18 MCG inhalation IH SCH (07:42)
[2019-04-04] MEDS: Cholecalciferol (D-3) 1,000 UNIT (25MCG) TABLET PO SCH (10:52)
[2019-04-04] MEDS: NIFEdipine XL (24 HR) 30 MG TAB.ER.24 PO SCH (10:53)
[2019-04-04] MEDS: Loratadine 10 MG TABLET PO SCH (10:53)
[2019-04-04] MEDS: Furosemide 40 MG TABLET PO SCH (10:53)
[2019-04-04] MEDS: Isosorbide MONOnitrate (24 HR) 30 MG TAB.ER.24H PO SCH (10:53)
[2019-04-04] MEDS: Lisinopril 20 MG TABLET PO SCH ×2 (10:53→20:04)
[2019-04-04] MEDS: Aspirin Enteric Coated 81 MG Tablet PO SCH (10:53)
[2019-04-05] MEDS ORDERED: Albumin 25% 25gram/100mL 25 GM/100 ML IV.SOLN IVPB PRN (06:44)
[2019-04-05] MEDS ORDERED: 0.9 % Sodium Chloride 250 ML IVC PRN (06:44)
[2019-04-05 07:52] LABS: Basophils % 0.3 %; Eosinophils # 0.1 K/mcL (0.0-0.6); Eosinophils % 2.4 %; Hematocrit 20.7 % (37.5-50.1); Hemoglobin 7.1 g/dL (12.9-16.9); Immature Granulocytes % 0.6 % (0-4); Lymphocytes % 34.6 %; Mean Corpuscular HGB Conc 34.3 g/dL (31.6-35.5); Mean Corpuscular Hemoglobin 37.2 pg (28.0-33.3); Mean Corpuscular Volume 108.4 fL (83.0-100.0); Mean Platelet Volume 14.1 fL (9.4-12.4); Monocytes # 0.3 K/mcL (0.0-1.3); Neutrophils # 1.8 K/mcL (1.6-8.9); Red Blood Count 1.91 M/mcL (4.19-5.50); Red Cell Distribution Width 14.7 % (11.5-14.5); Segmented Neutrophils % 53.1 %; White Blood Count 3.3 K/mcL (4.3-11.1)
[2019-04-05 07:53] LABS: Lymphocytes # 1.1 K/mcL (0.6-4.6); Platelet Count 74 K/mcL (140-400)
[2019-04-05 08:04] LABS: Calcium 9.2 mg/dL (8.6-10.3); Potassium 4.7 mEq/L (3.5-5.1)
[2019-04-05 08:16] LABS: Thyroid Stimulating Hormone 0.852 mcIU/mL (0.340-5.600)
[2019-04-05] MEDS: Furosemide 40 MG TABLET PO SCH (08:25)
[2019-04-05] MEDS: Lisinopril 20 MG TABLET PO SCH ×2 (08:25→20:00)
[2019-04-05] MEDS: Aspirin Enteric Coated 81 MG Tablet PO SCH (08:25)
[2019-04-05] MEDS: Isosorbide MONOnitrate (24 HR) 30 MG TAB.ER.24H PO SCH (08:25)
[2019-04-05] MEDS: NIFEdipine XL (24 HR) 30 MG TAB.ER.24 PO SCH (08:25)
[2019-04-05] MEDS: Loratadine 10 MG TABLET PO SCH (08:26)
[2019-04-05] MEDS: Cholecalciferol (D-3) 1,000 UNIT (25MCG) TABLET PO SCH (08:26)
[2019-04-05] MEDS: Tiotropium 18 MCG inhalation IH SCH (08:34)
[2019-04-05 09:15] LABS: Folate > 22.3 ng/mL (3.0-16.0); Vitamin B12 517 pg/mL (250-1100)
[2019-04-06 06:07] LABS: Basophils % 0.3 %; Immature Granulocytes % 0.6 % (0-4); Mean Corpuscular Hemoglobin 37.4 pg (28.0-33.3); Red Cell Distribution Width 14.5 % (11.5-14.5)
[2019-04-06 06:09] LABS: Eosinophils # 0.1 K/mcL (0.0-0.6); Eosinophils % 2.9 %; Hematocrit 20.6 % (37.5-50.1); Hemoglobin 7.1 g/dL (12.9-16.9); Immature Platelets 17.9 % (1.1-6.1); Lymphocytes # 1.3 K/mcL (0.6-4.6); Lymphocytes % 36.7 %; Mean Corpuscular HGB Conc 34.5 g/dL (31.6-35.5); Mean Corpuscular Volume 108.4 fL (83.0-100.0); Monocytes # 0.4 K/mcL (0.0-1.3); Monocytes % 10.2 %; Neutrophils # 1.7 K/mcL (1.6-8.9); Platelet Count 64 K/mcL (140-400); Segmented Neutrophils % 49.3 %; White Blood Count 3.4 K/mcL (4.3-11.1)
[2019-04-06 06:24] LABS: Anisocytosis 1+ (Not Present); Platelet Estimate Decreased (Normal)
[2019-04-06 06:30] LABS: Calcium 8.8 mg/dL (8.6-10.3); Potassium 4.6 mEq/L (3.5-5.1)
[2019-04-06] MEDS: Tiotropium 18 MCG inhalation IH SCH (07:13)
[2019-04-06] MEDS ORDERED: 0.9 % Sodium Chloride 250 ML ONE ×2 (13:06→19:39)
[2019-04-06] MEDS: Lisinopril 20 MG TABLET PO SCH (20:50)
[2019-04-07] MEDS: NIFEdipine XL (24 HR) 30 MG TAB.ER.24 PO SCH (02:34)
[2019-04-07] MEDS: Aspirin Enteric Coated 81 MG Tablet PO SCH ×2 (02:35→10:50)
[2019-04-07] MEDS: Isosorbide MONOnitrate (24 HR) 30 MG TAB.ER.24H PO SCH ×2 (02:36→10:49)
[2019-04-07] MEDS: Furosemide 40 MG TABLET PO SCH ×2 (02:36→10:50)
[2019-04-07] MEDS: Lisinopril 20 MG TABLET PO SCH ×3 (02:37→20:19)
[2019-04-07] MEDS: Loratadine 10 MG TABLET PO SCH ×2 (02:37→10:50)
[2019-04-07] MEDS: Cholecalciferol (D-3) 1,000 UNIT (25MCG) TABLET PO SCH ×2 (02:39→10:49)
[2019-04-07] MEDS ORDERED: *HR* Labetalol 20 MG/4 ML SYRINGE IVP ONE (02:59)
[2019-04-07 03:22] LABS: Hemoglobin 7.7 g/dL (12.9-16.9)
[2019-04-07 07:36] LABS: Hematocrit 25.8 % (37.5-50.1); Hemoglobin 8.6 g/dL (12.9-16.9); Mean Corpuscular HGB Conc 33.3 g/dL (31.6-35.5); Mean Corpuscular Hemoglobin 35.2 pg (28.0-33.3); Mean Corpuscular Volume 105.7 fL (83.0-100.0); Mean Platelet Volume 13.7 fL (9.4-12.4); Red Blood Count 2.44 M/mcL (4.19-5.50); White Blood Count 3.6 K/mcL (4.3-11.1)
[2019-04-07 07:38] LABS: Platelet Count 72 K/mcL (140-400)
[2019-04-07 07:55] LABS: Calcium 9.3 mg/dL (8.6-10.3); Potassium 4.7 mEq/L (3.5-5.1)
[2019-04-07] MEDS: Tiotropium 18 MCG inhalation IH SCH (08:11)
[2019-04-07] MEDS: NIFEdipine XL (24 HR) 60 MG TAB.ER.24 PO SCH (10:58)
[2019-04-07] MEDS ORDERED: *HR* Metoprolol 5 MG/5 ML VIAL IVP PRN (15:07)
[2019-04-07] MEDS ORDERED: Isovue-370 500 ML BOTTLE IVP ONE (15:09)
[2019-04-08 06:29] LABS: Hematocrit 24.6 % (37.5-50.1); Immature Granulocytes % 0.6 % (0-4)
[2019-04-08 06:31] LABS: Basophils % 0.6 %; Eosinophils # 0.1 K/mcL (0.0-0.6); Eosinophils % 3.3 %; Hemoglobin 8.6 g/dL (12.9-16.9); Immature Platelets 17.5 % (1.1-6.1); Lymphocytes # 1.2 K/mcL (0.6-4.6); Lymphocytes % 35.5 %; Mean Corpuscular Hemoglobin 35.7 pg (28.0-33.3); Mean Corpuscular Volume 102.1 fL (83.0-100.0); Mean Platelet Volume 13.4 fL (9.4-12.4); Monocytes # 0.4 K/mcL (0.0-1.3); Monocytes % 12.7 %; Neutrophils # 1.6 K/mcL (1.6-8.9); Red Blood Count 2.41 M/mcL (4.19-5.50); Red Cell Distribution Width 16.2 % (11.5-14.5); Segmented Neutrophils % 47.3 %; White Blood Count 3.3 K/mcL (4.3-11.1)
[2019-04-08 06:32] LABS: Platelet Count 64 K/mcL (140-400)
[2019-04-08 06:47] LABS: Calcium 9.2 mg/dL (8.6-10.3); Potassium 4.8 mEq/L (3.5-5.1)
[2019-04-08] MEDS: Tiotropium 18 MCG inhalation IH SCH (07:39)
[2019-04-08] MEDS: Aspirin Enteric Coated 81 MG Tablet PO SCH (07:52)
[2019-04-08] MEDS: Loratadine 10 MG TABLET PO SCH (07:52)
[2019-04-08] MEDS: Furosemide 40 MG TABLET PO SCH (07:52)
[2019-04-08] MEDS ORDERED: 0.9 % Sodium Chloride 250 ML IVC PRN (08:38)
[2019-04-08] MEDS: Cholecalciferol (D-3) 1,000 UNIT (25MCG) TABLET PO SCH (14:55)
[2019-04-08] MEDS: Isosorbide MONOnitrate (24 HR) 30 MG TAB.ER.24H PO SCH (14:55)
[2019-04-08] MEDS: NIFEdipine XL (24 HR) 60 MG TAB.ER.24 PO SCH (14:55)
[2019-04-08] MEDS: Lisinopril 20 MG TABLET PO SCH ×2 (14:56→20:17)
[2019-04-09 06:45] LABS: Hematocrit 24.8 % (37.5-50.1); Mean Corpuscular Hemoglobin 36.1 pg (28.0-33.3); Mean Platelet Volume 13.9 fL (9.4-12.4); Red Cell Distribution Width 16.1 % (11.5-14.5)
[2019-04-09 06:46] LABS: White Blood Count 3.8 K/mcL (4.3-11.1)
[2019-04-09 06:47] LABS: Basophils % 0.3 %; Eosinophils # 0.1 K/mcL (0.0-0.6); Eosinophils % 2.9 %; Hemoglobin 8.7 g/dL (12.9-16.9); Immature Granulocytes % 0.5 % (0-4); Immature Platelets 20.4 % (1.1-6.1); Lymphocytes # 1.4 K/mcL (0.6-4.6); Lymphocytes % 37.4 %; Mean Corpuscular HGB Conc 35.1 g/dL (31.6-35.5); Mean Corpuscular Volume 102.9 fL (83.0-100.0); Monocytes # 0.4 K/mcL (0.0-1.3); Monocytes % 10.6 %; Neutrophils # 1.8 K/mcL (1.6-8.9); Red Blood Count 2.41 M/mcL (4.19-5.50); Segmented Neutrophils % 48.3 %
[2019-04-09 06:50] LABS: Platelet Count 68 K/mcL (140-400)
[2019-04-09] MEDS: Tiotropium 18 MCG inhalation IH SCH (07:15)
[2019-04-09] MEDS: NIFEdipine XL (24 HR) 30 MG TAB.ER.24 PO SCH (07:24)
[2019-04-09 08:00] LABS: Calcium 9.3 mg/dL (8.6-10.3); Potassium 4.6 mEq/L (3.5-5.1)
[2019-04-09] MEDS: Cholecalciferol (D-3) 1,000 UNIT (25MCG) TABLET PO SCH (09:02)
[2019-04-09] MEDS: Isosorbide MONOnitrate (24 HR) 30 MG TAB.ER.24H PO SCH (09:03)
[2019-04-09] MEDS: NIFEdipine XL (24 HR) 60 MG TAB.ER.24 PO SCH (09:03)
[2019-04-09] MEDS: Furosemide 40 MG TABLET PO SCH (09:03)
[2019-04-09] MEDS: Aspirin Enteric Coated 81 MG Tablet PO SCH (09:03)
[2019-04-09] MEDS: Lisinopril 20 MG TABLET PO SCH ×2 (09:03→22:57)
[2019-04-09] MEDS: Loratadine 10 MG TABLET PO SCH (09:03)
[2019-04-10 06:46] LABS: Hematocrit 24.3 % (37.5-50.1); Hemoglobin 8.2 g/dL (12.9-16.9); Immature Granulocytes % 0.6 % (0-4); Mean Corpuscular HGB Conc 33.7 g/dL (31.6-35.5)
[2019-04-10 06:48] LABS: Eosinophils # 0.1 K/mcL (0.0-0.6); Eosinophils % 3.1 %; Immature Platelets 17.7 % (1.1-6.1); Lymphocytes # 1.3 K/mcL (0.6-4.6); Lymphocytes % 39.5 %; Mean Corpuscular Volume 106.6 fL (83.0-100.0); Monocytes # 0.4 K/mcL (0.0-1.3); Neutrophils # 1.4 K/mcL (1.6-8.9); Red Blood Count 2.28 M/mcL (4.19-5.50); Red Cell Distribution Width 15.8 % (11.5-14.5); Segmented Neutrophils % 44.8 %; White Blood Count 3.2 K/mcL (4.3-11.1)
[2019-04-10 06:52] LABS: Platelet Count 70 K/mcL (140-400)
[2019-04-10 07:00] LABS: Calcium 9.5 mg/dL (8.6-10.3); Potassium 4.6 mEq/L (3.5-5.1)
[2019-04-10] MEDS: Tiotropium 18 MCG inhalation IH SCH (07:48)
[2019-04-10] MEDS: Furosemide 40 MG TABLET PO SCH (09:18)
[2019-04-10] MEDS: Aspirin Enteric Coated 81 MG Tablet PO SCH (09:18)
[2019-04-10] MEDS: Isosorbide MONOnitrate (24 HR) 30 MG TAB.ER.24H PO SCH (09:19)
[2019-04-10] MEDS: Cholecalciferol (D-3) 1,000 UNIT (25MCG) TABLET PO SCH (09:19)
[2019-04-10] MEDS: Loratadine 10 MG TABLET PO SCH (09:19)
[2019-04-10] MEDS: NIFEdipine XL (24 HR) 60 MG TAB.ER.24 PO SCH (09:20)
[2019-04-10] MEDS: Lisinopril 20 MG TABLET PO SCH (09:20)
[2019-04-10] MEDS ORDERED: 0.9 % Sodium Chloride 250 ML IVC PRN (09:40)
[2019-04-10] MEDS ORDERED: 0.9 % Sodium Chloride 1,000 ML PRIME SCH (09:45)
[2019-04-10 17:19] VITALS: BP 151/59
== END 2019-04-10 14:35 | DRG 640 ==
LOC: EMEROOARM 14:39 → 2ANU 14:39 → SUATTDRO 17:58 → 2ANU 18:09 → SUATTDRO 04-07 16:18
PROVIDERS: ADMIT Internal Medicine; ATTEND Internal Medicine

== ENCOUNTER 2019-06-30 21:56 | Inpatient (IN) ==
[2019-07-01] MEDS ORDERED: Naloxone 0.4 MG/ML INJ IVP PRN (00:07)
[2019-07-01] MEDS ORDERED: D5% in Water 1,000 ML IVC PRN (00:13)
[2019-07-01] MEDS ORDERED: *HR* Dextrose 50 % in Water (Syg) 50 ML SYRINGE IVP PRN (00:13)
[2019-07-01] MEDS ORDERED: Dextrose Gel 15 GM/37.5 ML TUBE PO PRN ×2 (00:13)
[2019-07-01] MEDS ORDERED: D5% in 0.45% NACL 1,000 ML IVC SCH (00:15)
[2019-07-01] MEDS ORDERED: Isovue-370 500 ML BOTTLE IVP ONE (00:35)
[2019-07-01] MEDS ORDERED: Ipratropium/Albuterol Neb 3 ML IH PRN (01:01)
[2019-07-01 01:18] LABS: Basophils % 0.3 %; Mean Corpuscular Volume 101.4 fL (83.0-100.0)
[2019-07-01 01:20] LABS: Eosinophils % 0.5 %; Hematocrit 29.7 % (37.5-50.1); Hemoglobin 10.1 g/dL (12.9-16.9); Immature Granulocytes % 0.4 % (0-4); Immature Platelets 14.8 % (1.1-6.1); Lymphocytes # 0.9 K/mcL (0.6-4.6); Lymphocytes % 12.6 %; Mean Corpuscular Hemoglobin 34.5 pg (28.0-33.3); Mean Platelet Volume 13.2 fL (9.4-12.4); Monocytes # 0.9 K/mcL (0.0-1.3); Monocytes % 12.2 %; Red Blood Count 2.93 M/mcL (4.19-5.50); Red Cell Distribution Width 21.3 % (11.5-14.5); White Blood Count 7.4 K/mcL (4.3-11.1)
[2019-07-01 01:22] LABS: Neutrophils # 5.5 K/mcL (1.6-8.9); Platelet Count 76 K/mcL (140-400)
[2019-07-01 01:52] LABS: Albumin 3.5 g/dL (3.5-5.7); Albumin/Globulin Ratio 1.3 (1.1-2.2); Bilirubin,Total 0.7 mg/dL (0.3-1.0); Calcium 9.4 mg/dL (8.6-10.3); Globulin 2.7 g/dL (2.4-3.5); Magnesium 2.3 mg/dL (1.6-2.6); Potassium 5.1 mEq/L (3.5-5.1); Total Protein 6.2 g/dL (6.4-8.9)
[2019-07-01] MEDS: Furosemide 40 MG/4 ML VIAL IVP SCH ×2 (06:49→07:37)
[2019-07-01] MEDS: Pantoprazole 40 MG VIAL IVP SCH ×2 (06:49→16:45)
[2019-07-01] MEDS: Insulin LISPRO 300 UNITS/3 ML VIAL SQ SCH ×4 (06:51→22:42)
[2019-07-01] MEDS ORDERED: 0.9 % Sodium Chloride 250 ML IVC PRN (08:12)
[2019-07-01] MEDS ORDERED: 0.9 % Sodium Chloride 1,000 ML PRIME SCH (08:15)
[2019-07-01] MEDS ORDERED: Morphine Sulfate 2 MG/ML SYRINGE IVP PRN (08:31)
[2019-07-01 08:33] LABS: Hematocrit 29.8 % (37.5-50.1); Hemoglobin 9.9 g/dL (12.9-16.9)
[2019-07-01] MEDS ORDERED: Morphine Sulfate 2 MG/ML SYRINGE IVP ONE (08:46)
[2019-07-01 09:27] LABS: Hepatitis B Surface Antibody < 3.10 mIU/mL
[2019-07-01 09:35] LABS: Hepatitis B Surface Antigen Nonreactive (Nonreactive)
[2019-07-01 13:48] LABS: Hematocrit 30.1 % (37.5-50.1); Hemoglobin 9.8 g/dL (12.9-16.9)
[2019-07-02 04:44] LABS: Calcium 9.2 mg/dL (8.6-10.3); Potassium 4.2 mEq/L (3.5-5.1)
[2019-07-02 05:30] LABS: Basophils % 0.3 %; Eosinophils # 0.1 K/mcL (0.0-0.6); Eosinophils % 1.3 %; Hemoglobin 10.1 g/dL (12.9-16.9); Immature Granulocytes % 0.7 % (0-4); Immature Platelets 13.7 % (1.1-6.1); Lymphocytes % 16.1 %; Mean Corpuscular HGB Conc 32.6 g/dL (31.6-35.5); Mean Corpuscular Hemoglobin 34.6 pg (28.0-33.3); Mean Corpuscular Volume 106.2 fL (83.0-100.0); Mean Platelet Volume 13.5 fL (9.4-12.4); Monocytes # 0.7 K/mcL (0.0-1.3); Monocytes % 11.1 %; Neutrophils # 4.2 K/mcL (1.6-8.9); Platelet Count 69 K/mcL (140-400); Red Blood Count 2.92 M/mcL (4.19-5.50); Red Cell Distribution Width 21.3 % (11.5-14.5); Segmented Neutrophils % 70.5 %
[2019-07-02] MEDS: Insulin LISPRO 300 UNITS/3 ML VIAL SQ SCH ×3 (05:53→19:25)
[2019-07-02] MEDS: Pantoprazole 40 MG VIAL IVP SCH ×2 (06:34→20:26)
[2019-07-02] MEDS: Furosemide 40 MG/4 ML VIAL IVP SCH (12:31)
[2019-07-02] MEDS ORDERED: *HR* FentaNYL (PF) 100 MCG/2 ML VIAL ONE (16:50)
[2019-07-02] MEDS ORDERED: *HR* Midazolam HCl 5 MG/5 ML VIAL IVP ONE ×2 (16:51→17:19)
[2019-07-02] MEDS ORDERED: Tetracaine/Benzocaine/Butamben 1 SPRAY AEROSOL MM ONE (17:19)
[2019-07-02] MEDS ORDERED: *HR* FentaNYL (PF) 100 MCG/2 ML VIAL IVP ONE (17:19)
[2019-07-03] MEDS: Insulin LISPRO 300 UNITS/3 ML VIAL SQ SCH ×3 (01:10→14:05)
[2019-07-03 04:49] LABS: Basophils % 0.4 %; Mean Corpuscular Volume 109.8 fL (83.0-100.0)
[2019-07-03 04:50] LABS: Eosinophils # 0.1 K/mcL (0.0-0.6); Eosinophils % 2.4 %; Hemoglobin 8.5 g/dL (12.9-16.9); Immature Granulocytes % 0.6 % (0-4); Immature Platelets 9.7 % (1.1-6.1); Lymphocytes # 1.2 K/mcL (0.6-4.6); Lymphocytes % 24.3 %; Mean Corpuscular HGB Conc 31.5 g/dL (31.6-35.5); Mean Corpuscular Hemoglobin 34.6 pg (28.0-33.3); Mean Platelet Volume 13.5 fL (9.4-12.4); Monocytes # 0.6 K/mcL (0.0-1.3); Monocytes % 11.1 %; Red Blood Count 2.46 M/mcL (4.19-5.50); Red Cell Distribution Width 20.9 % (11.5-14.5); Segmented Neutrophils % 61.2 %
[2019-07-03 04:59] LABS: Neutrophils # 3.1 K/mcL (1.6-8.9); Platelet Count 66 K/mcL (140-400)
[2019-07-03 05:03] LABS: Calcium 8.8 mg/dL (8.6-10.3); Potassium 4.6 mEq/L (3.5-5.1)
[2019-07-03] MEDS: Pantoprazole 40 MG VIAL IVP SCH (06:03)
[2019-07-03] MEDS ORDERED: 0.9 % Sodium Chloride 250 ML IVC PRN (08:08)
[2019-07-03 13:44] VITALS: BP 126/87
[2019-07-03] MEDS: Furosemide 40 MG/4 ML VIAL IVP SCH (14:04)
== END 2019-07-03 17:53 | disposition hospice, home (50) | DRG 377 ==
LOC: 2ANU → SUATTDRO 23:44
PROVIDERS: ADMIT Internal Medicine; ATTEND Internal Medicine